=== PATIENT | female | born 1955 ===

== ENCOUNTER 2017-01-06 06:42 | Observation (INO) | payer OTHER ==
[2017-01-06] MEDS ORDERED: Morphine 2 mg/ml ISec IVP STA (07:13)
--- NOTE | 2017-01-06 07:20 | ED PDOC ---
Arrival/HPI - General Chief Complaint: Upper Extremity Problem/Injury Time Seen by Provider: 01/06/17 07:04 Historian: Patient - History of Present Illness Narrative History of Present Illness (Text): 01/06/17 07:16 Patient is a 61 year old female, on Metoprolol 25 mg, presents to the emergency department with right sided neck, shoulder, and chest pain for the past 2 days. Patient states she is unable to pinpoint where the pain is coming from. Patient reports she has had this pain on and off in the past. She states her chest pain is worse with inspiration. She also reports palpitations and nausea. Patient states she was unable to find a comfortable position while sleeping last night due to the pain. Denies leg pain, abdominal pain, or other complaints. PMD: Dr. Conchis Benito ([place]) Time/Duration: < week Symptom Onset: Gradual Symptom Course: Unchanged Modifying Factors (Text): None Past Medical History - Provider Review Nursing Documentation Reviewed: Yes - Cardiac Hx Hypertension: Yes - Endocrine/Metabolic Hx Hyperthyroidism: Yes - Psychiatric Hx Substance Use: No Family/Social History - Physician Review Nursing Documentation Reviewed: Yes Family/Social History: Unknown Family HX Smoking Status: n Hx Alcohol Use: No Hx Substance Use: No Allergies/Home Meds Allergies/Adverse Reactions: Allergies Penicillins Allergy (Verified 01/06/17 11:53) ANAPHYLAXIS Home Medications: Home Meds Medication Instructions Recorded Confirmed Amlodipine Besylate/Benazepril 1 cap PO HS 01/06/17 01/06/17 [Amlodipine-Benazepril 2.5-10] Aspirin [Adult Low Dose Aspirin EC] 81 mg PO DAILY 01/06/17 01/06/17 Atorvastatin Calcium 20 mg PO HS 01/06/17 01/06/17 Levothyroxine Sodium 100 mcg PO DAILY 01/06/17 01/06/17 Lisinopril/Hydrochlorothiazide 12.5 - 20 mg PO DAILY 01/06/17 01/06/17 [Lisinopril-Hctz 20-12.5 mg Tab] Metformin HCl [Glucophage] 500 mg PO BID 01/06/17 01/06/17 Metoprolol Tartrate [Lopressor] 25 mg PO DAILY 01/06/17 01/06/17 Review of Systems - Review of Systems Eyes: absent: Vision Changes ENT: absent: Hearing Changes Respiratory: absent: SOB, Cough Cardiovascular: Chest Pain Gastrointestinal: Nausea. absent: Abdominal Pain, Vomiting Genitourinary Female: absent: Dysuria, Hematuria Musculoskeletal: Other (Right shoulder pain, Right neck pain) Skin: absent: Rash Neurological: absent: Headache Endocrine: absent: Diaphoresis Physical Exam - Physical Exam Narrative Physical Exam (Text): Head: Atraumatic. Normocephalic. Eyes: PERRL. EOMI. Conjunctivae are not pale. ENT: Mucous membranes are moist and intact. Oropharynx is clear and symmetric. Neck: Supple. Full ROM. No JVD. No lymphadenopathy. Paraspinal tenderness, right greater than left. Cardiovascular: Tachycardic. Regular rhythm. No murmurs, rubs, or gallops. Distal pulses are 2+ and symmetric. Pulmonary/Chest: Palpable chest wall tenderness. No evidence of respiratory distress. Clear to auscultation bilaterally. No wheezing, rales or rhonchi. Abdominal: Soft and non-distended. There is no tenderness. No rebound, guarding, or rigidity. No organomegaly. Good bowel sounds. Back: No CVA tenderness. Extremities: Palpable right shoulder tenderness, worse with ROM. No edema. No cyanosis. No clubbing. No calf tenderness. Skin: Skin is warm and dry. No petechiae. No purpura. Neurological: Alert, awake, and oriented to person, place, time, and situation. Normal speech. Motor and sensory exam intact. Psychiatric: Good eye contact. Appears somewhat anxious. 01/06/17 16:16 Vital Signs Reviewed: Yes Vital Signs Temp Pulse Resp BP Pulse Ox 01/06/17 08:42 94 H 20 147/80 99 01/06/17 06:51 98.1 F 117 H 18 118/72 99 Temperature: Afebrile Blood Pressure: Normal Pulse: Tachycardic Respiratory Rate: Normal Appearance: Positive for: Well-Appearing, Non-Toxic, Uncomfortable Pain Distress: Moderate Mental Status: Positive for: Alert and Oriented X 3 Medical Decision Making ED Course and Treatment: Differential Diagnosis include but are not limited to: Muscle strain vs coronary artery disease vs PE Plan: Will give pain medication, Zofran, and obtain CCU workup. Progress Notes: Patient with severe right sided chest pain radiating to neck. Pulses equal and strong, although patient tachycardic and tachypneic. Ddimer unremarkable, but persistent pain radiating to back thus ct angio ordered. CT angio result reviewed no dissection. Recommend follow-up of ct findings during inpatient admission. Will admit to telemetry for cardiac monitoring as pain persistent, cardiac risk factors reported, no prior cardiac workup obtained. Case d/w hospitalist accepts admission to his service. 01/06/17 16:19 - Lab Interpretations Lab Results: 01/06/17 07:15 01/06/17 07:15 Lab Results 01/06/17 07:26: POC Glucose (mg/dL) 156 H 01/06/17 07:15: pO2 42, VBG pH 7.34, VBG pCO2 49.0, VBG HCO3 26.4, VBG Total CO2 27.9, VBG O2 Sat (Calc) 79.5 H, VBG Base Excess -0.1 L, VBG Potassium 4.2, Sodium 141.0, Chloride 106.0, Glucose 149 H, Lactate 4.9 H*, FiO2 21.0, Venous Blood Potassium 4.2 01/06/17 07:15: Urine Color Yellow, Urine Appearance Clear, Urine pH 7.0, Ur Specific [place] <= 1.005, Urine Protein Negative, Urine Glucose (UA) Negative, Urine Ketones Negative, Urine Blood Negative, Urine Nitrate Negative, Urine Bilirubin Negative, Urine Urobilinogen 0.2, Ur Leukocyte Esterase Negative 01/06/17 07:15: Sodium 142, Chloride 102, Potassium 4.2, Carbon Dioxide 24, Anion Gap 20, BUN 11, Creatinine 0.6, Est GFR ( Amer) > 60, Est GFR (Non- Af Amer) > 60, Random Glucose 151 H, Calcium 9.7, Total Bilirubin 0.5, AST 48 H , ALT 42, Alkaline Phosphatase 91, Lactate Dehydrogenase 519, Total Creatine Kinase 180, Troponin I < 0.01, NT-Pro-B Natriuret Pep 35.9, Total Protein 8.6 H , Albumin 4.6, Globulin 3.9, Albumin/Globulin Ratio 1.2 01/06/17 07:15: PT 10.1, INR 0.94, APTT 26.4, D-Dimer, Quantitative 0.26 01/06/17 07:15: WBC 5.9, RBC 5.03, Hgb 14.8, Hct 42.3, MCV 84.1, MCH 29.4, MCHC 35.0, RDW 13.2, Plt Count 306, MPV 9.7, Gran % 49.1 L, Lymph % (Auto) 38.4 H, [place] % (Auto) 10.1 H, Eos % (Auto) 1.7, Baso % (Auto) 0.7, Gran # 2.92, Lymph # 2.3, [place] # 0.6, Eos # 0.1, Baso # 0.04 - RAD Interpretation Radiology Orders: 01/06/17 07:13 CHEST PORTABLE [RAD] Stat 01/06/17 08:42 ANGIOGRAPHY DISECTION PROTOCOL [CT] Stat Business Relations Manager: Radiologist - EKG Interpretation EKG Interpretation (Text): 01/06/17 16:18 EKG at 19:00 sinus tachycardia rate of [address] elevations Interpreted by ED Physician: Yes Type: 12 lead EKG - Medication Orders Current Medication Orders: Amlodipine Besylate (Norvasc) 10 mg PO DAILY [facility] Last Admin: 01/06/17 11:33 Dose: 10 mg Aspirin (Ecotrin) 81 mg PO DAILY JOS Atorvastatin Calcium (Lipitor) 20 mg PO HS JOS Enoxaparin Sodium (Lovenox) 40 mg SC DAILY [facility] PRN Reason: Protocol Last Admin: 01/06/17 10:21 Dose: 40 mg Levofloxacin/Dextrose (Levaquin 750mg) 750 mg in 150 mls @ 100 mls/hr IVPB DAILY [facility] Last Admin: 01/06/17 10:21 Dose: 100 mls/hr Sodium Chloride (Sodium Chloride 0.9%) 1,000 mls @ 100 mls/hr IV .Q10H [facility] Last Admin: 01/06/17 10:14 Dose: 100 mls/hr Insulin Human Regular (Humulin R Low) 0 units SC ACHS [facility] PRN Reason: Protocol Ketorolac Tromethamine (Toradol) 30 mg IVP Q6 PRN PRN Reason: Pain, moderate (4-7) Levothyroxine Sodium (Synthroid) 100 mcg PO DAILY JOS Lisinopril (Zestril) 20 mg PO DAILY [facility] Last Admin: 01/06/17 11:36 Dose: 20 mg Morphine Sulfate (Morphine) 2 mg IVP Q6H PRN PRN Reason: Pain, severe (8-10) Last Admin: 01/06/17 11:33 Dose: 2 mg Re-Assess: CAROL ANN Pain Assessment Document 01/06/17 12:33 AND (Rec: 01/06/17 13:23 AND [email or web address]) Pain Reassessment Is this a pain reassessment? Yes Sleep Is patient sleeping during reassessment? No Presence of Pain Presence of Pain No Ondansetron HCl (Zofran Inj) 4 mg IVP Q6 PRN PRN Reason: Nausea/Vomiting Last Admin: 01/06/17 14:17 Dose: 4 mg Pantoprazole Sodium (Protonix Ec Tab) 40 mg PO DAILY [facility] Last Admin: 01/06/17 10:21 Dose: 40 mg Discontinued Medications Aspirin (Aspirin Chewable) 81 mg PO STAT STA Stop: 01/06/17 08:44 Last Admin: 01/06/17 08:56 Dose: 81 mg Aspirin (Aspirin Chewable) 81 mg PO DAILY [facility] Last Admin: 01/06/17 10:07 Dose: Sodium Chloride (Sodium Chloride 0.9%) 500 mls @ 1,000 mls/hr IV .Q30M STA Stop: 01/06/17 08:59 Last Admin: 01/06/17 08:57 Dose: 1,000 mls/hr Iodixanol (Visipaque) Confirm Administered Dose 150 ml IV .STK-MED ONE Stop: 01/06/17 08:48 Ketorolac Tromethamine (Toradol) 30 mg IVP ONCE ONE Stop: 01/06/17 08:43 Last Admin: 01/06/17 08:56 Dose: 30 mg Levothyroxine Sodium (Synthroid) 100 mcg PO ACB [facility] Last Admin: 01/06/17 11:33 Dose: 100 mcg Morphine Sulfate (Morphine) 2 mg IVP STAT STA Stop: 01/06/17 07:14 Last Admin: 01/06/17 07:34 Dose: 2 mg Ondansetron HCl (Zofran Inj) 4 mg IVP ONCE ONE Stop: 01/06/17 07:14 Last Admin: 01/06/17 07:33 Dose: 4 mg Pneumococcal Polyvalent Vaccine (Pneumovax 23 Vaccine) 0.5 ml IM .ONCE ONE Stop: 01/06/17 14:11 - Scribe Statement The provider has reviewed the documentation as recorded by the Ayanna Freitas Provider Scribe Attestation: All medical record entries made by the Scribe were at my direction and personally dictated by me. I have reviewed the chart and agree that the record accurately reflects my personal performance of the history, physical exam, medical decision making, and the department course for this patient. I have also personally directed, reviewed, and agree with the discharge instructions and disposition. Disposition/Present on Arrival - Present on Arrival Any Indicators Present on Arrival: No History of DVT/PE: No History of Uncontrolled Diabetes: No Urinary Catheter: No History of Decub. Ulcer: No History Surgical Site Infection Following: None - Disposition Have Diagnosis and Disposition been Completed?: Yes Diagnosis: Chest pain, Tachycardia, Neck pain Disposition: HOSPITALIZED Disposition Time: 09:00 Patient Plan: Admission, Observation, Telemetry Patient Problems: Current Active Problems Problem Status Onset Chest pain Acute Tachycardia Acute Condition: FAIR
[2017-01-06 07:40] LABS: ADD MANUAL DIFF? NO
[2017-01-06 07:45] LABS: BASO # 0.04 K/mm3 (0.0-2.0); BASO % 0.7 % (0.0-3.0); EOS # 0.1 (0.0-0.7); EOS % 1.7 % (1.5-5.0); GRAN # 2.92 (1.4-6.5); GRAN % 49.1 % (50.0-68.0); HEMATOCRIT 42.3 % (36.0-48.0); LYMPH # 2.3 (1.2-3.4); LYMPH % 38.4 % (22.0-35.0); MEAN CELL VOLUME 84.1 fL (80.0-105.0); MEAN CORPUSCULAR HEMOGLOBIN 29.4 pg (25.0-35.0); MEAN PLATELET VOLUME 9.7 fl (7.0-11.0); MONO # 0.6 (0.1-0.6); MONO % 10.1 % (1.0-6.0); PLATELET COUNT 306 10^3/uL (120.0-450.0); RED CELL DISTRIBUTION WIDTH 13.2 % (11.5-14.5); WHITE BLOOD COUNT 5.9 10^3/ul (4.5-11.0)
[2017-01-06 07:55] LABS: URINE BILIRUBIN NEGATIVE (NEGATIVE); URINE BLOOD NEGATIVE (NEGATIVE); URINE GLUCOSE (UA) NEGATIVE (NEGATIVE); URINE KETONE NEGATIVE (NEGATIVE); URINE LEUKOCYTE ESTERASE NEGATIVE Leu/uL (NEGATIVE); URINE PROTEIN NEGATIVE mg/dL (<30 mg/dL); URINE UROBILINOGEN 0.2 E.U./dL (<1 E.U./dL)
[2017-01-06 08:00] LABS: INR 0.94 (0.93-1.08); PARTIAL THROMBOPLASTIN TIME 26.4 Seconds (23.7-30.8)
[2017-01-06 08:05] LABS: URINE APPEARANCE CLEAR (CLEAR); URINE COLOR YELLOW (YELLOW)
[2017-01-06 08:07] LABS: ALB/GLOB RATIO 1.2 (1.1-1.8); ALKALINE PHOSPHATASE 91 U/L (38-133); ALT/SGPT 42 U/L (7-56); AST/SGOT 48 U/L (15-39); BILIRUBIN,TOTAL 0.5 mg/dL (0.2-1.3); BLOOD UREA NITROGEN 11 mg/dL (7-21); CALCIUM 9.7 mg/dL (8.4-10.5); CARBON DIOXIDE 24 mmol/L (21-33); CHLORIDE 102 mmol/L (98-107); GFR AFRICAN-AMERICAN > 60; GLUCOSE,RANDOM 151 mg/dL (70-110); POTASSIUM 4.2 mmol/L (3.6-5.0); SODIUM 142 mmol/L (132-148); TOTAL PROTEIN 8.6 g/dL (5.8-8.3)
[2017-01-06 08:15] LABS: VENOUS BLOOD GAS BASE EXCESS -0.1 mmol/L (0.0-2.0); VENOUS BLOOD PH 7.34 (7.32-7.43)
[2017-01-06 08:19] LABS: TROPONIN I < 0.01 ng/mL
[2017-01-06] MEDS ORDERED: Sodium Chloride 0.9% 500 ML IV STA (08:30)
[2017-01-06 08:31] LABS: D DIMER 0.26 mg/L FEU (0-0.50)
[2017-01-06] MEDS ORDERED: Iodixanol 320 mg/ml 150 ml Bottle IV ONE (08:47)
--- NOTE | 2017-01-06 08:48 | RAD ---
HISTORY: right sided chest pain COMPARISON: No prior. FINDINGS: LUNGS: There is bibasilar atelectasis. There is no lobar pneumonia. PLEURA: No significant pleural effusion identified, no pneumothorax apparent. CARDIOVASCULAR: Normal. OSSEOUS STRUCTURES: No significant abnormalities. VISUALIZED UPPER ABDOMEN: Normal. OTHER FINDINGS: None. IMPRESSION: No acute findings.
--- NOTE | 2017-01-06 09:44 | CP.PCM.HP ---
<Edinson Espinosa - Last Filed: 01/06/17 14:16> History of Present Illness - History of Present Illness History of Present Illness: H&P: Dr. Crowley CC - R neck/Chest pain 61yo F with PMHx of HTN, Hypothyroid, HLD, DM here for evaluation of right sided chest and neck pain. Pain started 3 days ago when she was resting at home. Pain started in the right jaw, then down to the right neck and right side of the chest. Pain comes and goes, gets worse with movement, has been getting more severe in intensity. Described as sharp pressure. Neck pain worse when turning head to the right. Chest pain worse when lifting right arm up. Deep breath makes pain slightly worse. Denies any SOB. No N/V/D. No Diaphoresis. no headache. No fever, chills. No recent sick contacts. Has been taking home medications as directed. PMD: Conchis Benito PMHx: HTN, HLD, Hypothyroid, DM PSHx: Tubal ligation Family Hx: Mother - HTN; Maternal grandmother - HTN Social Hx: Lives alone; Denies Tob, Denies ETOH, Denies illicit drugs Allergy: PCN Meds - ASA 81, Atorvastatin 20, Metoprolol 25 daily, Levothyroxine 100mcg Daily , Lisinopril/HCTZ 20/12.5mg, Metformin 500mg BID, Amlodipine 10mg Daily Present on Admission - Present on Admission Any Indicators Present on Admission: No Review of Systems - Review of Systems All systems: reviewed and no additional remarkable complaints except - Constitutional Constitutional: absent: Chills, Fever - EENT Eyes: absent: Blurred Vision Ears: absent: Decreased Hearing Nose/Mouth/Throat: absent: Epistaxis, Nasal Congestion - Cardiovascular Cardiovascular: Chest Pain. absent: Dyspnea, Palpitations - Respiratory Respiratory: absent: Cough - Gastrointestinal Gastrointestinal: absent: Abdominal Pain, Nausea, Vomiting - Musculoskeletal Musculoskeletal: Neck Pain - Integumentary Integumentary: absent: Dry Skin, Wounds - Psychiatric Psychiatric: absent: Anxiety, Depression Past Patient History - Past Social History Smoking Status: n - CARDIAC Hx Hypertension: Yes - ENDOCRINE/METABOLIC Hx Hyperthyroidism: Yes - PSYCHIATRIC Hx Substance Use: No Meds Allergies/Adverse Reactions: Allergies Allergy/AdvReac Type Severity Reaction Status Date / Time Penicillins Allergy ANAPHYLAXIS Verified 01/06/17 11:53 Physical Exam - Constitutional Appears: Well, No Acute Distress - Head Exam Head Exam: ATRAUMATIC, NORMAL INSPECTION, NORMOCEPHALIC - Eye Exam Eye Exam: EOMI, Normal appearance, PERRL. absent: Scleral icterus Pupil Exam: PERRL - ENT Exam ENT Exam: Mucous Membranes Moist - Neck Exam Additional comments: decreased range of motion, no nucal rigidity, no bony tenderness. Pain illicited when passively turning head to right. No meningeal signs - Respiratory Exam Respiratory Exam: Chest Wall Tenderness, Clear to Auscultation Bilateral, NORMAL BREATHING PATTERN. absent: Accessory Muscle Use, Decreased Breath Sounds , Rales, Rhonchi, Wheezes, Respiratory Distress - Cardiovascular Exam Cardiovascular Exam: Tachycardia, +S1, +S2. absent: JVD - GI/Abdominal Exam GI & Abdominal Exam: Soft. absent: Distended, Firm, Guarding, Rebound, Tenderness - Extremities Exam Extremities exam: Positive for: normal inspection. Negative for: calf tenderness - Back Exam Back exam: NORMAL INSPECTION - Neurological Exam Neurological exam: Alert, Oriented x3 - Psychiatric Exam Psychiatric exam: Normal Affect, Normal Mood - Skin Skin Exam: Dry, Intact, Normal Color, Warm Results - Vital Signs Recent Vital Signs: Last Vital Signs Temp 98.1 F 01/06/17 06:51 Pulse 94 H 01/06/17 08:42 Resp 20 01/06/17 08:42 BP 147/80 01/06/17 08:42 Pulse Ox 99 01/06/17 08:42 - Labs Result Diagrams: 01/06/17 07:15 01/06/17 07:15 Assessment & Plan - Assessment and Plan (Free Text) Assessment: 61yo F with PMHx of HTN, Hypothyroidism, DM, HLD here for evaluation of right sided chest and neck pain 1. Atypical chest pain Reproducible EKG - sinus tachy @113, no acute ST changes CXR - mild atelectasis, no infiltrates D-Dimer negative troponin neg x1, will trend Pain management: motrin, toradol, morphine continue home meds: Asa 81 f/u Cervical Spine xray f/u CT angiography 2. Lactic Acidosis no current clinical signs or symptoms will repeat lactic acid f/u blood cxs UA negative f/u Urine Cxs f/u Procalcitonin Levofloxacin for now, can be discharged if above is negative NS @100 3. Hx of DM f/u HbA1c ISS Accuchecks hold metformin for now 4. Hx of HTN continue home meds: Amlodipine, Lisinopril hold HCTZ hold Metoprolol continue to monitor 5. Hx of HLD continue atorvastatin 20 HS 6. Hx of Hypothyroid f/u TSH continue Levothyroxine 100mcg 7. PPx Lovenox Protonix Discussed case with Dr. Carline Espinosa PGY1 <Aston Crowley MD - Last Filed: 01/06/17 17:22> Results - Vital Signs Recent Vital Signs: Last Vital Signs Temp 98.1 F 01/06/17 13:38 Pulse 84 01/06/17 14:00 Resp 20 01/06/17 13:38 BP 131/71 01/06/17 13:38 Pulse Ox 99 01/06/17 08:42 - Labs Result Diagrams: 01/06/17 07:15 01/06/17 07:15 Labs: Laboratory Results - last 24 hr 01/06/17 01/06/17 01/06/17 11:30 11:30 11:30 pO2 VBG pH VBG pCO2 VBG HCO3 VBG Total CO2 VBG O2 Sat (Calc) VBG Base Excess VBG Potassium Sodium Chloride Glucose Lactate FiO2 Hemoglobin A1c 6.4 Troponin I Procalcitonin 0.05 L TSH 3rd Generation 6.61 H Venous Blood Potassium 01/06/17 01/06/17 11:30 13:52 pO2 33 VBG pH 7.49 H VBG pCO2 31.0 L VBG HCO3 23.6 VBG Total CO2 24.6 VBG O2 Sat (Calc) 73.2 H VBG Base Excess 1.1 VBG Potassium 3.9 Sodium 139.0 Chloride 110.0 H Glucose 103 Lactate 1.7 FiO2 21.0 Hemoglobin A1c Troponin I < 0.01 Procalcitonin TSH 3rd Generation Venous Blood Potassium 3.9 Attending/Attestation - Attestation I have personally seen and examined this patient.: Yes I have fully participated in the care of the patient.: Yes I have reviewed all pertinent clinical information: Yes Notes (Text): 01/06/17 17:12 Patient was seen and examined with director medical economics .Agreed with resident assessment and plan. 61 Yrs old female with PMH of Obesity,HTN,DM,Hyperlipidemia is admitted with chest and neck pain, has significant chest wall tenderness, also has muscle spasm of neck,There is no neck stiffness. X ray of neck is negative for acute fracture and dislocation. We will start patient on NSAID, musscle relaxant. Lactic acid at the time of arrival in ER was elevated , etiology is unclear, has come back to normal .There is no sign of infection, we will follow up cultures, Management plan was discussed in detail with patient Education was provided.
[2017-01-06] MEDS ORDERED: Levothyroxine 100 MCG TAB PO SCH (09:45)
[2017-01-06] MEDS: Sodium Chloride 0.9% 1,000 ML IV SCH ×2 (10:14→22:16)
[2017-01-06] MEDS: Enoxaparin 40 mg Syringe SC SCH (10:21)
[2017-01-06] MEDS: Pantoprazole 40 mg EC Tab PO SCH (10:21)
[2017-01-06] MEDS: levoFLOXacin 750 mg in D5W 750 MG/150 ML BAG IVPB SCH (10:21)
--- NOTE | 2017-01-06 11:32 | CT ---
PROCEDURE: CT Angiography Chest, Abdomen and Pelvis with and without intravenous contrast HISTORY: chest pain radiating to back COMPARISON: None. TECHNIQUE: Contiguous axial images of the chest, abdomen and pelvis were obtained in the phase of aortic enhancement. A noncontrast enhanced CT of the chest was also obtained to evaluate for possible intramural thrombus. Coronal and sagittal reformats were generated. IV dose administered: Radiation dose: Total exam DLP = mGy-cm. This CT exam was performed using one or more of the following dose reduction techniques: Automated exposure control, adjustment of the mA and/or kV according to patient size, and/or use of iterative reconstruction technique. FINDINGS: CT ANGIOGRAPHY OF THE CHEST WITH & WITHOUT CONTRAST: AORTA (CHEST AND ABDOMEN): The thoracic and abdominal aorta are unremarkable, without aneurysm, dissection or rupture. No intramural thrombus identified in the thoracic aorta on the non-contrast ct of the chest. The celiac axis, superior mesenteric artery, inferior mesenteric artery and the renal arteries are widely patent. The pelvic arteries are unremarkable. LUNGS: Calcified granuloma measuring roughly 8 millimeters in the left upper lobe. Otherwise the lungs are clear. MEDIASTINUM: Unremarkable. Normal caliber aorta and pulmonary arterial trunk. No aortic dissection. Normal size heart. LYMPH NODES: Unremarkable. PLEURA: Unremarkable. No pneumothorax. No pleural fluid. BONES: Unremarkable. OTHER FINDINGS: None. CT ANGIOGRAPHY OF THE ABDOMEN AND PELVIS WITH CONTRAST: LIVER: Fatty infiltration of the liver.. No gross lesion or ductal dilatation. GALLBLADDER AND BILE DUCTS: Unremarkable. PANCREAS: Unremarkable. No gross lesion or ductal dilatation. SPLEEN: Unremarkable. ADRENALS: Unremarkable. No mass. KIDNEYS AND URETERS: Unremarkable. No hydronephrosis. No solid mass. VASCULATURE: Unremarkable. No aortic aneurysm. STOMACH AND BOWEL: Unremarkable. No obstruction. No gross mural thickening. APPENDIX: Normal appendix. PERITONEUM: Unremarkable. No free fluid. No free air. LYMPH NODES: Unremarkable. No enlarged lymph nodes. BLADDER: Unremarkable. REPRODUCTIVE: Unremarkable. BONES: No acute fracture. OTHER FINDINGS: None. IMPRESSION: Fatty liver. Calcified granuloma in the left upper lobe. No evidence of aortic aneurysm or dissection.
[2017-01-06] MEDS: Morphine 2 mg/ml ISec IVP PRN ×2 (11:33→17:23)
[2017-01-06 11:40] LABS: VENOUS BLOOD GAS BASE EXCESS 1.1 mmol/L (0.0-2.0); VENOUS BLOOD PH 7.49 (7.32-7.43)
[2017-01-06 14:10] VITALS: BMI 30.7
[2017-01-06] MEDS ORDERED: Pneumococcal 23-Valent Vaccine IM ONE (14:10)
--- NOTE | 2017-01-06 14:37 | RAD ---
PROCEDURE: Cervical Spine Radiographs. HISTORY: Pain. COMPARISON: None. FINDINGS: BONES: There is straightening of the cervical spine with loss of normal cervical lordosis. Vertebral alignment is normal. Vertebral height is maintained. There is no acute fracture or bone destruction. The craniocervical junction is normal. The atlantoaxial joint is normal. DISC SPACES: There is mild degenerative disc disease and C5-6 and C6-7 with reduced disc heights, anterior spurring and facet arthropathy. The neural foramina are patent. SOFT TISSUES: Normal. No prevertebral soft tissue swelling. OTHER FINDINGS: None. IMPRESSION: Mild degenerative disc disease at C5-6 and C6-7. Straightening of the cervical spine may be positional or related to muscle spasm.
--- NOTE | 2017-01-06 16:19 | CARD ---
APPROVED REPORT EKG Measurement Heart [id number] <Conclusion> Sinus tachycardia Otherwise normal ECG
[2017-01-06] MEDS: Insulin Reg-LOW-Coverage SC SCH ×2 (17:21→22:15)
[2017-01-07 06:48] LABS: ADD MANUAL DIFF? NO
[2017-01-07 07:12] LABS: BLOOD UREA NITROGEN 9 mg/dL (7-21); CALCIUM 8.9 mg/dL (8.4-10.5); CARBON DIOXIDE 22 mmol/L (21-33); CHLORIDE 109 mmol/L (98-107); GFR AFRICAN-AMERICAN > 60; GLUCOSE,RANDOM 117 mg/dL (70-110); POTASSIUM 3.7 mmol/L (3.6-5.0); SODIUM 141 mmol/L (132-148)
[2017-01-07 07:25] LABS: BASO # 0.04 K/mm3 (0.0-2.0); BASO % 0.8 % (0.0-3.0); EOS # 0.1 (0.0-0.7); EOS % 1.4 % (1.5-5.0); GRAN # 2.62 (1.4-6.5); GRAN % 51.5 % (50.0-68.0); HEMATOCRIT 39.2 % (36.0-48.0); LYMPH # 1.9 (1.2-3.4); LYMPH % 36.9 % (22.0-35.0); MEAN CELL VOLUME 84.7 fL (80.0-105.0); MEAN CORPUSCULAR HEMOGLOBIN 29.6 pg (25.0-35.0); MEAN CORPUSCULAR HGB CONC 34.9 g/dl (31.0-37.0); MEAN PLATELET VOLUME 9.6 fl (7.0-11.0); MONO # 0.5 (0.1-0.6); MONO % 9.4 % (1.0-6.0); PLATELET COUNT 280 10^3/uL (120.0-450.0); RED CELL DISTRIBUTION WIDTH 13.5 % (11.5-14.5); WHITE BLOOD COUNT 5.1 10^3/ul (4.5-11.0)
[2017-01-07] MEDS: Insulin Reg-LOW-Coverage SC SCH ×3 (07:55→16:52)
[2017-01-07] MEDS ORDERED: Levothyroxine 100 MCG TAB PO SCH (10:00)
[2017-01-07] MEDS: Pantoprazole 40 mg EC Tab PO SCH (10:17)
[2017-01-07] MEDS: Enoxaparin 40 mg Syringe SC SCH (10:18)
[2017-01-07] MEDS: levoFLOXacin 750 mg in D5W 750 MG/150 ML BAG IVPB SCH (10:20)
--- NOTE | 2017-01-07 11:39 | CT ---
PROCEDURE: CT Cervical Spine without contrast HISTORY: Dizziness COMPARISON: None available. TECHNIQUE: Axial computed tomography images were obtained of the cervical spine without the use of intravenous contrast. Coronal and sagittal reformatted images were created and reviewed. Radiation dose: Total exam DLP = 438.25 mGy-cm. This CT exam was performed using one or more of the following dose reduction techniques: Automated exposure control, adjustment of the mA and/or kV according to patient size, and/or use of iterative reconstruction technique. FINDINGS: VERTEBRAE: There is straightening of the cervical spine with loss of normal cervical lordosis. Vertebral alignment is normal. Vertebral height is maintained. There is no acute fracture or spondylolisthesis. The craniocervical junction is normal. The atlantoaxial joint is normal. Bone mineralization is normal. DISCS/SPINAL CANAL/NEURAL FORAMINA: There is mild multilevel degenerative disc disease at C5-6 with a broad-based disc osteophyte complex, uncovertebral joint hypertrophy and mild facet arthropathy and resultant mild left neural foraminal stenosis. No spinal canal stenosis. Discs heights are grossly preserved. PARASPINAL SOFT TISSUES: Unremarkable. OTHER FINDINGS: None. IMPRESSION: Mild degenerative disc disease at C5-6 with mild left neural foraminal stenosis. No spinal canal stenosis. Straightening of the cervical spine may be positional or related to muscle spasm.
--- NOTE | 2017-01-07 13:47 | CP.PCM.PN ---
<Edinson Espinosa - Last Filed: 01/07/17 13:37> Subjective - Date & Time of Evaluation Date of Evaluation: 01/07/17 Time of Evaluation: 08:00 - Subjective Subjective: Medicine Progress note. Dr. Crowley Pt seen and examined at bedside. No acute events overnight. Patient states that she has been feeling dizzy. No N/V/D. No Abd pain. Still with Right neck pain, right arm pain, right side reproducible chest pain. Mild improvement since yesterday. She was trying to work with physical therapy this morning, however, she became very dizzy and unsteady on her feet. Orthostatic vital signs were wnl at the time. Objective - Vital Signs/Intake and Output Vital Signs (last 24 hours): Temp Pulse Resp BP Pulse Ox 98.2 F 86 20 135/71 95 01/07/17 12:00 01/07/17 12:00 01/07/17 12:00 01/07/17 12:00 01/07/17 06:00 Intake and Output: 01/07/17 01/07/17 06:59 18:59 Intake Total 120 1200 Output Total 0 Balance 120 1200 - Medications Medications: Current Medications Amlodipine Besylate (Norvasc) 10 mg PO DAILY [facility] Last Admin: 01/07/17 10:18 Dose: 10 mg Aspirin (Ecotrin) 81 mg PO DAILY [facility] Last Admin: 01/07/17 10:17 Dose: 81 mg Atorvastatin Calcium (Lipitor) 20 mg PO HS [facility] Last Admin: 01/06/17 22:16 Dose: 20 mg Baclofen (Lioresal) 5 mg PO TID [facility] Last Admin: 01/07/17 10:17 Dose: 5 mg Enoxaparin Sodium (Lovenox) 40 mg SC DAILY [facility] PRN Reason: Protocol Last Admin: 01/07/17 10:18 Dose: 40 mg Insulin Human Regular (Humulin R Low) 0 units SC ACHS [facility] PRN Reason: Protocol Last Admin: 01/07/17 11:49 Dose: 1 units Ketorolac Tromethamine (Toradol) 30 mg IVP Q6 PRN PRN Reason: Pain, moderate (4-7) Levothyroxine Sodium (Synthroid) 112 mcg PO ACB [facility] Lisinopril (Zestril) 20 mg PO DAILY [facility] Last Admin: 01/07/17 10:18 Dose: 20 mg Metoprolol Tartrate (Lopressor) 25 mg PO DAILY [facility] Last Admin: 01/07/17 10:19 Dose: 25 mg Morphine Sulfate (Morphine) 2 mg IVP Q6H PRN PRN Reason: Pain, severe (8-10) Last Admin: 01/06/17 17:23 Dose: 2 mg Ondansetron HCl (Zofran Inj) 4 mg IVP Q6 PRN PRN Reason: Nausea/Vomiting Last Admin: 01/06/17 14:17 Dose: 4 mg Oxycodone/Acetaminophen (Percocet 5/325 Mg Tab) 1 tab PO Q6H PRN PRN Reason: Pain, severe (8-10) Stop: 01/10/17 10:32 Pantoprazole Sodium (Protonix Ec Tab) 40 mg PO DAILY [facility] Last Admin: 01/07/17 10:17 Dose: 40 mg - Labs Labs: 01/07/17 06:30 01/07/17 06:30 PT 10.1 Seconds (9.9-11.8) 01/06/17 07:15 INR 0.94 (0.93-1.08) 01/06/17 07:15 APTT 26.4 Seconds (23.7-30.8) 01/06/17 07:15 - Constitutional Appears: Well, No Acute Distress - Head Exam Head Exam: ATRAUMATIC, NORMAL INSPECTION, NORMOCEPHALIC - Eye Exam Eye Exam: EOMI, Normal appearance, PERRL. absent: Scleral icterus Pupil Exam: PERRL - ENT Exam ENT Exam: Mucous Membranes Moist - Neck Exam Additional comments: Decreased Passive ROM of the neck to the right. Tender to palpation, worse with passive flexion of the right shoulder. - Respiratory Exam Respiratory Exam: Clear to Ausculation Bilateral, NORMAL BREATHING PATTERN. absent: Rales, Wheezes, Stridor - Cardiovascular Exam Cardiovascular Exam: RRR, +S1, +S2. absent: JVD - GI/Abdominal Exam GI & Abdominal Exam: Soft. absent: Distended, Guarding, Tenderness, Rebound - Extremities Exam Additional comments: decreased ROM right upper extremity at the shoulder due to pain. - Neurological Exam Neurological Exam: Alert, Awake, Oriented x3 - Psychiatric Exam Psychiatric exam: Normal Affect, Normal Mood - Skin Skin Exam: Dry, Intact, Normal Color, Warm Assessment and Plan - Assessment and Plan (Free Text) Assessment: 61yo F with PMHx of HTN, Hypothyroidism, DM, HLD here for evaluation of right sided chest and neck pain 1. Atypical chest pain Reproducible EKG - sinus tachy @113, no acute ST changes CXR - mild atelectasis, no infiltrates D-Dimer negative troponin neg x3, ACS ruled out Pain management: toradol, morphine continue home meds: Asa 81 CT angiography - No PE, No dissection 2. Muscle spasm Cervical Spine xray - Decreased c-spine lordosis, possible muscle spasm f/u CT c-spine Started on Baclofen TID 3. Dizziness consider due to narcotics will use NSAIDs preferred over narcotics continue PT eval and treat 4. Lactic Acidosis resolved no current clinical signs or symptoms repeat lactic acid wnl f/u blood cxs UA negative f/u Urine Cxs Procalcitonin negative Levofloxicin discontinued 5. Hx of DM HbA1c - 6.4 ISS Accuchecks hold metformin for now, may restart on 01/08 Patient received contrast dye yesterday 6. Hx of HTN continue home meds: Amlodipine, Lisinopril hold HCTZ resume Metoprolol continue to monitor 7. Hx of HLD continue atorvastatin 20 HS 8. Hx of Hypothyroid TSH - 6.61 mildly elevated increase Levothyroxine 112mcg will need out-patient f/u 9. PPx Lovenox Protonix Discussed case with Dr. Carline Espinosa PGY1 <Carline ANDERSEN,[place] - Last Filed: 01/07/17 15:17> Objective - Vital Signs/Intake and Output Vital Signs (last 24 hours): Temp Pulse Resp BP Pulse Ox 98.2 F 86 20 135/71 95 01/07/17 12:00 01/07/17 12:00 01/07/17 12:00 01/07/17 12:00 01/07/17 06:00 Intake and Output: 01/07/17 01/07/17 06:59 18:59 Intake Total 120 1800 Output Total 0 200 Balance 120 1600 - Medications Medications: Current Medications Amlodipine Besylate (Norvasc) 10 mg PO DAILY [facility] Last Admin: 01/07/17 10:18 Dose: 10 mg Aspirin (Ecotrin) 81 mg PO DAILY [facility] Last Admin: 01/07/17 10:17 Dose: 81 mg Atorvastatin Calcium (Lipitor) 20 mg PO HS [facility] Last Admin: 01/06/17 22:16 Dose: 20 mg Baclofen (Lioresal) 5 mg PO TID [facility] Last Admin: 01/07/17 10:17 Dose: 5 mg Enoxaparin Sodium (Lovenox) 40 mg SC DAILY [facility] PRN Reason: Protocol Last Admin: 01/07/17 10:18 Dose: 40 mg Insulin Human Regular (Humulin R Low) 0 units SC ACHS [facility] PRN Reason: Protocol Last Admin: 01/07/17 11:49 Dose: 1 units Ketorolac Tromethamine (Toradol) 30 mg IVP Q6 PRN PRN Reason: Pain, moderate (4-7) Last Admin: 01/07/17 14:05 Dose: 30 mg Levothyroxine Sodium (Synthroid) 112 mcg PO ACB [facility] Lisinopril (Zestril) 20 mg PO DAILY [facility] Last Admin: 01/07/17 10:18 Dose: 20 mg Metoprolol Tartrate (Lopressor) 25 mg PO DAILY [facility] Last Admin: 01/07/17 10:19 Dose: 25 mg Morphine Sulfate (Morphine) 2 mg IVP Q6H PRN PRN Reason: Pain, severe (8-10) Last Admin: 01/06/17 17:23 Dose: 2 mg Ondansetron HCl (Zofran Inj) 4 mg IVP Q6 PRN PRN Reason: Nausea/Vomiting Last Admin: 01/06/17 14:17 Dose: 4 mg Oxycodone/Acetaminophen (Percocet 5/325 Mg Tab) 1 tab PO Q6H PRN PRN Reason: Pain, severe (8-10) Stop: 01/10/17 10:32 Pantoprazole Sodium (Protonix Ec Tab) 40 mg PO DAILY [facility] Last Admin: 01/07/17 10:17 Dose: 40 mg - Labs Labs: 01/07/17 06:30 01/07/17 06:30 PT 10.1 Seconds (9.9-11.8) 01/06/17 07:15 INR 0.94 (0.93-1.08) 01/06/17 07:15 APTT 26.4 Seconds (23.7-30.8) 01/06/17 07:15 Attending/Attestation - Attestation I have personally seen and examined this patient.: Yes I have fully participated in the care of the patient.: Yes I have reviewed all pertinent clinical information, including history, physical exam and plan: Yes Notes (Text): 01/07/17 15:07 Patient was seen and examined with medical affairs manager .Agreed with resident assessment and plan. 61 Yrs old female with PMH of Obesity,HTN,DM,Hyperlipidemia is admitted with chest and neck and back pain, has significant chest wall tenderness, also has muscle spasm of neck,CT C spine mild degenerative disease, no spinal cord stenosis, has straighten of spine due to severe muscle spasm, no focal deficit, Patient is on NSAID and IV Morphine as well as on muscle relaxant, she is slowly improving, Patient was evaluated by PT today, not ambulatory due to severe pain.We will continue current treatment. Patient lactic acid in the initial VBG was high for unknown reason, no evidence of infection, repeat Lactic acid is normal.Cultures are negative.Procalcitonin level is normal, we will stop Levofloxacin. Management plan was discussed in detail with patient Education was provided.
[2017-01-07] MEDS: Oxycodone/Acetaminophen 5/325 mg Tab PO PRN ×2 (18:17→23:28)
[2017-01-08] MEDS: Oxycodone/Acetaminophen 5/325 mg Tab PO PRN ×2 (05:16→16:26)
[2017-01-08 07:36] LABS: ADD MANUAL DIFF? NO
[2017-01-08 07:56] LABS: BLOOD UREA NITROGEN 15 mg/dL (7-21); CARBON DIOXIDE 24 mmol/L (21-33); CHLORIDE 107 mmol/L (98-107); GFR AFRICAN-AMERICAN > 60; GLUCOSE,RANDOM 114 mg/dL (70-110); POTASSIUM 3.7 mmol/L (3.6-5.0); SODIUM 139 mmol/L (132-148)
[2017-01-08] MEDS: Insulin Reg-LOW-Coverage SC SCH ×5 (08:00→21:48)
[2017-01-08] MEDS: Levothyroxine 112 MCG TAB PO SCH (08:25)
[2017-01-08 08:45] LABS: BASO # 0.05 K/mm3 (0.0-2.0); BASO % 0.9 % (0.0-3.0); EOS # 0.2 (0.0-0.7); EOS % 2.9 % (1.5-5.0); GRAN # 2.68 (1.4-6.5); GRAN % 49.3 % (50.0-68.0); LYMPH # 1.9 (1.2-3.4); LYMPH % 35.3 % (22.0-35.0); MEAN CELL VOLUME 84.1 fL (80.0-105.0); MEAN CORPUSCULAR HEMOGLOBIN 29.2 pg (25.0-35.0); MEAN CORPUSCULAR HGB CONC 34.7 g/dl (31.0-37.0); MEAN PLATELET VOLUME 9.9 fl (7.0-11.0); MONO # 0.6 (0.1-0.6); MONO % 11.6 % (1.0-6.0); PLATELET COUNT 278 10^3/uL (120.0-450.0); RED CELL DISTRIBUTION WIDTH 13.6 % (11.5-14.5); WHITE BLOOD COUNT 5.4 10^3/ul (4.5-11.0)
[2017-01-08] MEDS: Enoxaparin 40 mg Syringe SC SCH (09:39)
[2017-01-08] MEDS: Pantoprazole 40 mg EC Tab PO SCH (09:40)
--- NOTE | 2017-01-08 11:36 | CP.PCM.PN ---
<TamirLina - Last Filed: 01/08/17 16:34> Subjective - Date & Time of Evaluation Date of Evaluation: 01/08/17 Time of Evaluation: 11:10 - Subjective Subjective: Pt seen and evaluated at bedside. Reports w/neck pain c/o. Afebrile overnight. Objective - Vital Signs/Intake and Output Vital Signs (last 24 hours): Temp Pulse Resp BP Pulse Ox 97.8 F 87 20 114/70 95 01/08/17 07:48 01/08/17 09:40 01/08/17 07:48 01/08/17 09:40 01/08/17 07:48 Intake and Output: 01/08/17 01/08/17 06:59 18:59 Intake Total 240 Balance 240 - Medications Medications: Current Medications Amlodipine Besylate (Norvasc) 10 mg PO DAILY [facility] Last Admin: 01/08/17 09:39 Dose: 10 mg Aspirin (Ecotrin) 81 mg PO DAILY [facility] Last Admin: 01/08/17 09:39 Dose: 81 mg Atorvastatin Calcium (Lipitor) 20 mg PO HS [facility] Last Admin: 01/07/17 23:02 Dose: 20 mg Baclofen (Lioresal) 5 mg PO TID [facility] Last Admin: 01/08/17 09:40 Dose: 5 mg Enoxaparin Sodium (Lovenox) 40 mg SC DAILY [facility] PRN Reason: Protocol Last Admin: 01/08/17 09:39 Dose: 40 mg Insulin Human Regular (Humulin R Low) 0 units SC ACHS [facility] PRN Reason: Protocol Last Admin: 01/08/17 08:30 Dose: Not Given Ketorolac Tromethamine (Toradol) 30 mg IVP Q6 PRN PRN Reason: Pain, moderate (4-7) Last Admin: 01/08/17 08:20 Dose: 30 mg Levothyroxine Sodium (Synthroid) 112 mcg PO ACB [facility] Last Admin: 01/08/17 08:25 Dose: 112 mcg Lisinopril (Zestril) 20 mg PO DAILY [facility] Last Admin: 01/08/17 09:39 Dose: 20 mg Metoprolol Tartrate (Lopressor) 25 mg PO DAILY [facility] Last Admin: 01/08/17 09:40 Dose: 25 mg Morphine Sulfate (Morphine) 2 mg IVP Q6H PRN PRN Reason: Pain, severe (8-10) Last Admin: 01/06/17 17:23 Dose: 2 mg Ondansetron HCl (Zofran Inj) 4 mg IVP Q6 PRN PRN Reason: Nausea/Vomiting Last Admin: 01/06/17 14:17 Dose: 4 mg Oxycodone/Acetaminophen (Percocet 5/325 Mg Tab) 1 tab PO Q6H PRN PRN Reason: Pain, severe (8-10) Stop: 01/10/17 10:32 Last Admin: 01/08/17 05:16 Dose: 1 tab Pantoprazole Sodium (Protonix Ec Tab) 40 mg PO DAILY [facility] Last Admin: 01/08/17 09:40 Dose: 40 mg - Labs Labs: 01/08/17 07:15 01/08/17 07:15 PT 10.1 Seconds (9.9-11.8) 01/06/17 07:15 INR 0.94 (0.93-1.08) 01/06/17 07:15 APTT 26.4 Seconds (23.7-30.8) 01/06/17 07:15 - Additional Findings Additional findings: - Constitutional Appears: Well, No Acute Distress - Head Exam Head Exam: ATRAUMATIC, NORMOCEPHALIC - Eye Exam Eye Exam: EOMI, Normal appearance, PERRL - ENT Exam ENT Exam: Mucous Membranes Moist - Neck Exam Additional comments: Neck to the right tender to palpation - Respiratory Exam Respiratory Exam: Clear to Ausculation Bilateral, NORMAL BREATHING PATTERN - Cardiovascular Exam Cardiovascular Exam: RRR, +S1, +S2. - GI/Abdominal Exam GI & Abdominal Exam: Soft. Non-tender - Extremities Exam Extremities Exam: pulses palpable, no pedal edema Additional comments: decreased ROM right upper extremity at the shoulder due to pain. - Neurological Exam Neurological Exam: Alert, Awake - Psychiatric Exam Psychiatric exam: Normal Affect, Normal Mood - Skin Skin Exam: Intact, Normal Color Assessment and Plan - Assessment and Plan (Free Text) Plan: 61yo F with PMHx of HTN, Hypothyroidism, DM, HLD here for evaluation of right sided chest and neck pain 1. Atypical chest pain Reproducible EKG - sinus tachy @113, no acute ST changes CXR - mild atelectasis, no infiltrates D-Dimer negative troponin neg x3, ACS ruled out Pain management: toradol, morphine continue home meds: Asa 81 CT angiography - No PE, No dissection 2. Muscle spasm Cervical Spine xray - Decreased c-spine lordosis, possible muscle spasm CT c-spine 01/06/2017: "mild degenrative disc disease at C5-6 w/mild L neural foraminal stenosis. no spinal canal stenosis" Baclofen TID 3. Dizziness consider due to narcotics will use NSAIDs preferred over narcotics continue PT eval and treat 4. Lactic Acidosis resolved no current clinical signs or symptoms repeat lactic acid wnl blood cxs neg at 48hrs UA negative Urine Cxs neg final Procalcitonin negative Levofloxicin discontinued 5. Hx of DM HbA1c - 6.4 ISS Accuchecks metformin continued 6. Hx of HTN continue home meds: Amlodipine, Lisinopril hold HCTZ resume Metoprolol continue to monitor 7. Hx of HLD continue atorvastatin 20 HS 8. Hx of Hypothyroid TSH - 6.61 mildly elevated increased Levothyroxine 112mcg from 100 mcg (on 01/07/2017) will need out-patient f/u 9. PPx Lovenox Protonix Case seen and discussed with attending. <Gilmar Guerrero - Last Filed: 01/08/17 20:00> Objective - Vital Signs/Intake and Output Vital Signs (last 24 hours): Temp Pulse Resp BP Pulse Ox 97.6 F 72 69 H 120/68 96 01/08/17 17:07 01/08/17 17:07 01/08/17 17:07 01/08/17 17:07 01/08/17 17:07 Intake and Output: 01/08/17 01/09/17 18:59 06:59 Intake Total 420 Balance 420 - Medications Medications: Current Medications Amlodipine Besylate (Norvasc) 10 mg PO DAILY [facility] Last Admin: 01/08/17 09:39 Dose: 10 mg Aspirin (Ecotrin) 81 mg PO DAILY [facility] Last Admin: 01/08/17 09:39 Dose: 81 mg Atorvastatin Calcium (Lipitor) 20 mg PO HS [facility] Last Admin: 01/07/17 23:02 Dose: 20 mg Baclofen (Lioresal) 5 mg PO TID [facility] Last Admin: 01/08/17 17:38 Dose: 5 mg Enoxaparin Sodium (Lovenox) 40 mg SC DAILY [facility] PRN Reason: Protocol Last Admin: 01/08/17 09:39 Dose: 40 mg Insulin Human Regular (Humulin R Low) 0 units SC ACHS [facility] PRN Reason: Protocol Last Admin: 01/08/17 17:38 Dose: 1 units Ketorolac Tromethamine (Toradol) 30 mg IVP Q6 PRN PRN Reason: Pain, moderate (4-7) Last Admin: 01/08/17 08:20 Dose: 30 mg Levothyroxine Sodium (Synthroid) 112 mcg PO ACB [facility] Last Admin: 01/08/17 08:25 Dose: 112 mcg Lisinopril (Zestril) 20 mg PO DAILY [facility] Last Admin: 01/08/17 09:39 Dose: 20 mg Metformin HCl (Glucophage) 500 mg PO BID [facility] Last Admin: 01/08/17 17:38 Dose: 500 mg Metoprolol Tartrate (Lopressor) 25 mg PO DAILY [facility] Last Admin: 01/08/17 09:40 Dose: 25 mg Morphine Sulfate (Morphine) 2 mg IVP Q6H PRN PRN Reason: Pain, severe (8-10) Last Admin: 01/06/17 17:23 Dose: 2 mg Ondansetron HCl (Zofran Inj) 4 mg IVP Q6 PRN PRN Reason: Nausea/Vomiting Last Admin: 01/06/17 14:17 Dose: 4 mg Oxycodone/Acetaminophen (Percocet 5/325 Mg Tab) 1 tab PO Q6H PRN PRN Reason: Pain, severe (8-10) Stop: 01/10/17 10:32 Last Admin: 01/08/17 16:26 Dose: 1 tab Pantoprazole Sodium (Protonix Ec Tab) 40 mg PO DAILY [facility] Last Admin: 01/08/17 09:40 Dose: 40 mg - Labs Labs: 01/08/17 07:15 01/08/17 07:15 PT 10.1 Seconds (9.9-11.8) 01/06/17 07:15 INR 0.94 (0.93-1.08) 01/06/17 07:15 APTT 26.4 Seconds (23.7-30.8) 01/06/17 07:15 Attending/Attestation - Attestation I have personally seen and examined this patient.: Yes I have fully participated in the care of the patient.: Yes I have reviewed all pertinent clinical information, including history, physical exam and plan: Yes Notes (Text): 01/08/17 19:59 Patient seen and examined at bedside. Labs, vitals and notes reviewed. Translation used. Patient reports improved in her symptoms and is ambulating better without assistance. Mild dizziness reported but denies any other symptoms. Agree with the plan of care outlined above.
[2017-01-09] MEDS: Oxycodone/Acetaminophen 5/325 mg Tab PO PRN ×2 (01:10→10:08)
[2017-01-09] MEDS: Insulin Reg-LOW-Coverage SC SCH ×2 (08:09→12:36)
[2017-01-09 08:47] VITALS: PULSE 84; RESP 20; TEMP 97.9; O2SAT 97
[2017-01-09] MEDS: Pantoprazole 40 mg EC Tab PO SCH (09:12)
[2017-01-09] MEDS: Levothyroxine 112 MCG TAB PO SCH (09:13)
[2017-01-09] MEDS: Enoxaparin 40 mg Syringe SC SCH (09:14)
[2017-01-09 09:18] VITALS: BP 128/67
[2017-01-09] MEDS ORDERED: Lidocaine 5% Patch TD ONE (14:04)
--- NOTE | 2017-01-09 15:04 | CP.PCM.DIS ---
<Gilmar Guerrero - Last Filed: 01/09/17 16:41> Provider - Provider Date of Admission: 01/06/17 09:22 Attending physician: Gilmar Guerrero MD Primary care physician: Steph Benito MD Hospital Course - Lab Results Lab Results: Micro Results 01/06/17 16:40 Urine,Clean Catch Urine Culture - Final No Growth (<1,000 CFU/ML) Most Recent Lab Values WBC 5.4 10^3/ul (4.5-11.0) 01/08/17 07:15 RBC 4.52 10^6/uL (3.5-6.1) 01/08/17 07:15 Hgb 13.2 gm/dL (12.0-16.0) 01/08/17 07:15 Hct 38.0 % (36.0-48.0) 01/08/17 07:15 MCV 84.1 fL (80.0-105.0) 01/08/17 07:15 MCH 29.2 pg (25.0-35.0) 01/08/17 07:15 MCHC 34.7 g/dl (31.0-37.0) 01/08/17 07:15 RDW 13.6 % (11.5-14.5) 01/08/17 07:15 Plt Count 278 10^3/uL (120.0-450.0) 01/08/17 07:15 MPV 9.9 fl (7.0-11.0) 01/08/17 07:15 Gran % 49.3 % (50.0-68.0) L 01/08/17 07:15 Lymph % (Auto) 35.3 % (22.0-35.0) H 01/08/17 07:15 Bryan % (Auto) 11.6 % (1.0-6.0) H 01/08/17 07:15 Eos % (Auto) 2.9 % (1.5-5.0) 01/08/17 07:15 Baso % (Auto) 0.9 % (0.0-3.0) 01/08/17 07:15 Gran # 2.68 (1.4-6.5) 01/08/17 07:15 Lymph # 1.9 (1.2-3.4) 01/08/17 07:15 Bryan # 0.6 (0.1-0.6) 01/08/17 07:15 Eos # 0.2 (0.0-0.7) 01/08/17 07:15 Baso # 0.05 K/mm3 (0.0-2.0) 01/08/17 07:15 PT 10.1 Seconds (9.9-11.8) 01/06/17 07:15 INR 0.94 (0.93-1.08) 01/06/17 07:15 APTT 26.4 Seconds (23.7-30.8) 01/06/17 07:15 D-Dimer, Quantitative 0.26 mg/L FEU (0-0.50) 01/06/17 07:15 pO2 33 mm/Hg (30-55) 01/06/17 11:30 VBG pH 7.49 (7.32-7.43) H 01/06/17 11:30 VBG pCO2 31.0 (40-60) L 01/06/17 11:30 VBG HCO3 23.6 mmol/l (21-28) 01/06/17 11:30 VBG Total CO2 24.6 mmol.L (22-28) 01/06/17 11:30 VBG O2 Sat (Calc) 73.2 % (40-65) H 01/06/17 11:30 VBG Base Excess 1.1 mmol/L (0.0-2.0) 01/06/17 11:30 VBG Potassium 3.9 mmol/L (3.6-5.2) 01/06/17 11:30 Sodium 139.0 mmol/L (132-148) 01/06/17 11:30 Chloride 110.0 mmol/L (98-107) H 01/06/17 11:30 Glucose 103 mg/dl (65-105) 01/06/17 11:30 Lactate 1.7 mmol/L (0.7-2.1) 01/06/17 11:30 FiO2 21.0 % 01/06/17 11:30 Sodium 139 mmol/L (132-148) 01/08/17 07:15 Potassium 3.7 mmol/L (3.6-5.0) 01/08/17 07:15 Chloride 107 mmol/L (98-107) 01/08/17 07:15 Carbon Dioxide 24 mmol/L (21-33) 01/08/17 07:15 Anion Gap 12 (10-20) 01/08/17 07:15 BUN 15 mg/dL (7-21) 01/08/17 07:15 Creatinine 0.6 mg/dL (0.5-1.4) 01/08/17 07:15 Est GFR ( Amer) > 60 01/08/17 07:15 Est GFR (Non-Af Amer) > 60 01/08/17 07:15 POC Glucose (mg/dL) 156 mg/dL (65-110) H 01/06/17 07:26 Random Glucose 114 mg/dL (70-110) H 01/08/17 07:15 Hemoglobin A1c 6.4 % (4.2-6.5) 01/06/17 11:30 Calcium 9.0 mg/dL (8.4-10.5) 01/08/17 07:15 Total Bilirubin 0.5 mg/dL (0.2-1.3) 01/06/17 07:15 AST 48 U/L (15-39) H 01/06/17 07:15 ALT 42 U/L (7-56) 01/06/17 07:15 Alkaline Phosphatase 91 U/L (38-133) 01/06/17 07:15 Lactate Dehydrogenase 519 U/L (333-699) 01/06/17 07:15 Total Creatine Kinase 180 U/L (35-230) 01/06/17 07:15 Troponin I < 0.01 ng/mL 01/06/17 21:54 NT-Pro-B Natriuret Pep 35.9 pg/mL (0-450) 01/06/17 07:15 Total Protein 8.6 g/dL (5.8-8.3) H 01/06/17 07:15 Albumin 4.6 g/dL (3.0-4.8) 01/06/17 07:15 Globulin 3.9 gm/dL 01/06/17 07:15 Albumin/Globulin Ratio 1.2 (1.1-1.8) 01/06/17 07:15 Procalcitonin 0.05 NG/ML (0.19-0.49) L 01/06/17 11:30 TSH 3rd Generation 6.61 mIU/mL (0.46-4.68) H 01/06/17 11:30 Venous Blood Potassium 3.9 mmol/L (3.6-5.2) 01/06/17 11:30 Urine Color Yellow (YELLOW) 01/06/17 07:15 Urine Appearance Clear (CLEAR) 01/06/17 07:15 Urine pH 7.0 (4.7-8.0) 01/06/17 07:15 Ur Specific [place] <= 1.005 (1.005-1.035) 01/06/17 07:15 Urine Protein Negative mg/dL (<30 mg/dL) 01/06/17 07:15 Urine Glucose (UA) Negative mg/dL (NEGATIVE) 01/06/17 07:15 Urine Ketones Negative mg/dL (NEGATIVE) 01/06/17 07:15 Urine Blood Negative (NEGATIVE) 01/06/17 07:15 Urine Nitrate Negative (NEGATIVE) 01/06/17 07:15 Urine Bilirubin Negative (NEGATIVE) 01/06/17 07:15 Urine Urobilinogen 0.2 E.U./dL (<1 E.U./dL) 01/06/17 07:15 Ur Leukocyte Esterase Negative Mary/uL (NEGATIVE) 01/06/17 07:15 Discharge Plan - Discharge Medications Prescriptions: Baclofen [Lioresal] 5 mg PO TID #42 tab Levothyroxine [Synthroid] 112 mcg PO ACB #28 tab Lidocaine 5% [Lidoderm] 1 ea TD DAILY #3 patch oxyCODONE/Acetaminophen [Percocet 5/325 mg Tab] 1 tab PO Q6H PRN #9 tab PRN Reason: Pain, Severe (8-10) - Follow Up Plan Condition: STABLE Disposition: HOME/ ROUTINE Instructions: Chest Pain (GEN), Cholesterol and Your Health (GEN), Hypertension (GEN) Additional Instructions: You are discharged home. Please follow up with your primary medical physician within one week and 6 weeks after discharge. Please follow up with Dr. Núñez. Please continue your home medications, with the exception of your levothyroxine , because the dose was changed to 112 mcg daily. Also, you are given new prescriptions for percocet 5/325 one tab every 6 hours as needed with 9 tabs given, baclofen 5mg by mouth three times daily, and lidocaine patch to be placed on skin, one patch daily. You are given a prescription for home physical therapy services, three to five times a week for one week. Please return to the emergency department for worsening of symptoms. Referrals: Steph Benito MD [Primary Care Provider] - Attending/Attestation - Attestation I have personally seen and examined this patient.: Yes I have fully participated in the care of the patient.: Yes I have reviewed all pertinent clinical information, including history, physical exam and plan: Yes Notes (Text): 01/09/17 16:41 Patient seen and examined at bedside with the resident. Vitals, labs, medications and notes reviewed. Patient reports improvement in pain and is able to ambulate better now. Discharge plan clearly explained to the patient including follow up with physiatry as well as her PMD to check her thyroid panel. Reviewed and agree with the discharge plan as outlined above. <TamirLina - Last Filed: 01/09/17 17:00> Provider - Provider Date of Admission: 01/06/17 09:22 Attending physician: Gilmar Guerrero MD Primary care physician: Steph Benito MD Consults: none Time Spent in preparation of Discharge (in minutes): 35 Hospital Course - Lab Results Lab Results: Micro Results 01/06/17 16:40 Urine,Clean Catch Urine Culture - Final No Growth (<1,000 CFU/ML) Most Recent Lab Values WBC 5.4 10^3/ul (4.5-11.0) 01/08/17 07:15 RBC 4.52 10^6/uL (3.5-6.1) 01/08/17 07:15 Hgb 13.2 gm/dL (12.0-16.0) 01/08/17 07:15 Hct 38.0 % (36.0-48.0) 01/08/17 07:15 MCV 84.1 fL (80.0-105.0) 01/08/17 07:15 MCH 29.2 pg (25.0-35.0) 01/08/17 07:15 MCHC 34.7 g/dl (31.0-37.0) 01/08/17 07:15 RDW 13.6 % (11.5-14.5) 01/08/17 07:15 Plt Count 278 10^3/uL (120.0-450.0) 01/08/17 07:15 MPV 9.9 fl (7.0-11.0) 01/08/17 07:15 Gran % 49.3 % (50.0-68.0) L 01/08/17 07:15 Lymph % (Auto) 35.3 % (22.0-35.0) H 01/08/17 07:15 Bryan % (Auto) 11.6 % (1.0-6.0) H 01/08/17 07:15 Eos % (Auto) 2.9 % (1.5-5.0) 01/08/17 07:15 Baso % (Auto) 0.9 % (0.0-3.0) 01/08/17 07:15 Gran # 2.68 (1.4-6.5) 01/08/17 07:15 Lymph # 1.9 (1.2-3.4) 01/08/17 07:15 Bryan # 0.6 (0.1-0.6) 01/08/17 07:15 Eos # 0.2 (0.0-0.7) 01/08/17 07:15 Baso # 0.05 K/mm3 (0.0-2.0) 01/08/17 07:15 PT 10.1 Seconds (9.9-11.8) 01/06/17 07:15 INR 0.94 (0.93-1.08) 01/06/17 07:15 APTT 26.4 Seconds (23.7-30.8) 01/06/17 07:15 D-Dimer, Quantitative 0.26 mg/L FEU (0-0.50) 01/06/17 07:15 pO2 33 mm/Hg (30-55) 01/06/17 11:30 VBG pH 7.49 (7.32-7.43) H 01/06/17 11:30 VBG pCO2 31.0 (40-60) L 01/06/17 11:30 VBG HCO3 23.6 mmol/l (21-28) 01/06/17 11:30 VBG Total CO2 24.6 mmol.L (22-28) 01/06/17 11:30 VBG O2 Sat (Calc) 73.2 % (40-65) H 01/06/17 11:30 VBG Base Excess 1.1 mmol/L (0.0-2.0) 01/06/17 11:30 VBG Potassium 3.9 mmol/L (3.6-5.2) 01/06/17 11:30 Sodium 139.0 mmol/L (132-148) 01/06/17 11:30 Chloride 110.0 mmol/L (98-107) H 01/06/17 11:30 Glucose 103 mg/dl (65-105) 01/06/17 11:30 Lactate 1.7 mmol/L (0.7-2.1) 01/06/17 11:30 FiO2 21.0 % 01/06/17 11:30 Sodium 139 mmol/L (132-148) 01/08/17 07:15 Potassium 3.7 mmol/L (3.6-5.0) 01/08/17 07:15 Chloride 107 mmol/L (98-107) 01/08/17 07:15 Carbon Dioxide 24 mmol/L (21-33) 01/08/17 07:15 Anion Gap 12 (10-20) 01/08/17 07:15 BUN 15 mg/dL (7-21) 01/08/17 07:15 Creatinine 0.6 mg/dL (0.5-1.4) 01/08/17 07:15 Est GFR ( Amer) > 60 01/08/17 07:15 Est GFR (Non-Af Amer) > 60 01/08/17 07:15 POC Glucose (mg/dL) 156 mg/dL (65-110) H 01/06/17 07:26 Random Glucose 114 mg/dL (70-110) H 01/08/17 07:15 Hemoglobin A1c 6.4 % (4.2-6.5) 01/06/17 11:30 Calcium 9.0 mg/dL (8.4-10.5) 01/08/17 07:15 Total Bilirubin 0.5 mg/dL (0.2-1.3) 01/06/17 07:15 AST 48 U/L (15-39) H 01/06/17 07:15 ALT 42 U/L (7-56) 01/06/17 07:15 Alkaline Phosphatase 91 U/L (38-133) 01/06/17 07:15 Lactate Dehydrogenase 519 U/L (333-699) 01/06/17 07:15 Total Creatine Kinase 180 U/L (35-230) 01/06/17 07:15 Troponin I < 0.01 ng/mL 01/06/17 21:54 NT-Pro-B Natriuret Pep 35.9 pg/mL (0-450) 01/06/17 07:15 Total Protein 8.6 g/dL (5.8-8.3) H 01/06/17 07:15 Albumin 4.6 g/dL (3.0-4.8) 01/06/17 07:15 Globulin 3.9 gm/dL 01/06/17 07:15 Albumin/Globulin Ratio 1.2 (1.1-1.8) 01/06/17 07:15 Procalcitonin 0.05 NG/ML (0.19-0.49) L 01/06/17 11:30 TSH 3rd Generation 6.61 mIU/mL (0.46-4.68) H 01/06/17 11:30 Venous Blood Potassium 3.9 mmol/L (3.6-5.2) 01/06/17 11:30 Urine Color Yellow (YELLOW) 01/06/17 07:15 Urine Appearance Clear (CLEAR) 01/06/17 07:15 Urine pH 7.0 (4.7-8.0) 01/06/17 07:15 Ur Specific [place] <= 1.005 (1.005-1.035) 01/06/17 07:15 Urine Protein Negative mg/dL (<30 mg/dL) 01/06/17 07:15 Urine Glucose (UA) Negative mg/dL (NEGATIVE) 01/06/17 07:15 Urine Ketones Negative mg/dL (NEGATIVE) 01/06/17 07:15 Urine Blood Negative (NEGATIVE) 01/06/17 07:15 Urine Nitrate Negative (NEGATIVE) 01/06/17 07:15 Urine Bilirubin Negative (NEGATIVE) 01/06/17 07:15 Urine Urobilinogen 0.2 E.U./dL (<1 E.U./dL) 01/06/17 07:15 Ur Leukocyte Esterase Negative Mary/uL (NEGATIVE) 01/06/17 07:15 - Hospital Course Hospital Course: 61yo F with PMHx of HTN, Hypothyroid, HLD, DM here for evaluation of right sided chest and neck pain. Pain started 3 days ago when she was resting at home. Pain started in the right jaw, then down to the right neck and right side of the chest. Pain comes and goes, gets worse with movement, has been getting more severe in intensity. Described as sharp pressure. Neck pain worse when turning head to the right. Chest pain reproducible w/ R arm movt, deep breath and palpation. EKG - sinus tachy @113, no acute ST changes, CXR - mild atelectasis, no infiltrates, initial troponin negative. D-Dimer negative. CT angiography - No PE, No dissection. Transferred to telemetry for chest pain. On the floor: Pain control with motrin, tylenol and morphine. Troponin neg x3 , ACS ruled out. Initial lactic acid at 4.9, so treated with IVF and repeat value is 1.7. Levaquin started. UA negative, Procalcitonin negative, blood cxs neg at 48hrs, Urine Cx neg final, and levaquin discontinued. Continued home medication of ASA 81 qd. Also makes a dizziness complaint during admission course. Treated with preference for nsaids over narcotics and physical therapy. Muscle spams of neck and shoulder evaluated with C_spnie XR ( Decreased c-spine lordosis, possible muscle spasm) and CT C-Spine: "mild degenrative disc disease at C5-6 w/mild L neural foraminal stenosis. no spinal canal stenosis," and treated with baclofen. Home metformin and low ISS for DM hx, and HTN treated with home medications of amlodipine and lisiniopril. Home hypothyroid medication increased due to elevated TSH during admission. Pt d/c in stable condition with following medications and instructions: You are discharged home. Please follow up with your primary medical physician within one week and 6 weeks after discharge. Please follow up with Dr. Núñez. Please continue your home medications, with the exception of your levothyroxine , because the dose was changed to 112 mcg daily. Also, you are given new prescriptions for percocet 5/325 one tab every 6 hours as needed with 9 tabs given, baclofen 5mg by mouth three times daily, and lidocaine patch to be placed on skin, one patch daily. You are given a prescription for home physical therapy services, three to five times a week for one week. Please return to the emergency department for worsening of symptoms. Discharge Exam - Additional Findings Additional findings: - Constitutional Appears: Well, No Acute Distress - Head Exam Head Exam: ATRAUMATIC, NORMOCEPHALIC - Eye Exam Eye Exam: EOMI, Normal appearance, PERRL - ENT Exam ENT Exam: Mucous Membranes Moist - Neck Exam Additional comments: Neck to the right: tender to palpation - Respiratory Exam Respiratory Exam: Clear to Auscultation Bilateral, NORMAL BREATHING PATTERN - Cardiovascular Exam Cardiovascular Exam: no bradycardia, +S1, +S2. - GI/Abdominal Exam GI & Abdominal Exam: Soft. Non-tender - Extremities Exam Extremities Exam: pulses palpable, no pedal edema - Neurological Exam Neurological Exam: Alert, Awake - Psychiatric Exam Psychiatric exam: Normal Affect, Normal Mood - Skin Skin Exam: Intact, Normal Color
== END 2017-01-09 15:48 | disposition home or self-care (01) ==
LOC: ED 06:42 → ERH 09:22 → 2RNO 11:10 → 5RNO 01-07 18:43
PROVIDERS: ADMIT Internal Medicine; ATTEND Internal Medicine
DX: R07.89 Other chest pain (principal); E03.9 Hypothyroidism, unspecified; E11.9 Type 2 diabetes mellitus without complications; E78.5 Hyperlipidemia, unspecified; E87.2 Acidosis; I10 Essential (primary) hypertension; J98.11 Atelectasis; Z79.82 Long term (current) use of aspirin; Z79.899 Other long term (current) drug therapy; Z82.49 Family history of ischemic heart disease and other diseases of the circulatory system; M54.2 Cervicalgia; Z88.0 Allergy status to penicillin; Z87.892 Personal history of anaphylaxis
CPT/HCPCS: 36415; 71010; 71275; 72050; 72125; 74175; 80048; 80053; 81003; 82550; 82803; 82948; 83036; 83615; 83880; 84145; 84443; 84484; 85025; 85378; 85610; 85730; 87040; 87086; 93005; 96361; 96365; 96366; 96372; 96375; 96376; 97162; 97530; 99285; G0378; G8978; G8979; J1650; J1885; J2270; J2405; J7040

== ENCOUNTER 2017-08-23 17:10 | Observation (INO) | payer OTHER ==
[2017-08-23] MEDS ORDERED: Sodium Chloride 0.9% 1,000 ML IV STA (18:39)
--- NOTE | 2017-08-23 18:41 | ED PDOC ---
Arrival/HPI - General Historian: Patient - History of Present Illness Time/Duration: Other (see hpi) Quality: Aching Context: Home <Clarita Frazier P - Last Filed: 08/23/17 19:47> <Subhash Barrow - Last Filed: 08/23/17 23:12> - General Chief Complaint: Flu-like Symptoms Time Seen by Provider: 08/23/17 18:39 - History of Present Illness Narrative History of Present Illness (Text): 08/23/17 18:39 This 62 yo female with pmh pre DM, htn, presents to this ED c/o cough x 2 weeks. Patient also noted nausea, vomiting, and diarrhea x 4 days. She also noted intermittent fever x 4 days. Patient denies sob, cp, rectal bleeding, urinary symptoms, dizziness, murillo, neck pain, or abnormal gait. Patient stated feeling anxious and requesting medication. (Clarita Frazier) Past Medical History - Provider Review Nursing Documentation Reviewed: Yes - Cardiac Hx Cardiac Disorders: Yes Hx Hypertension: Yes - Pulmonary Hx Respiratory Disorders: Yes Hx Bronchitis: Yes - Neurological Hx Neurological Disorder: No - HEENT Hx HEENT Disorder: No - Renal Hx Renal Disorder: No - Endocrine/Metabolic Hx Endocrine Disorders: Yes Hx Diabetes Mellitus Type 2: Yes Hx Hypothyroidism: Yes - Hematological/Oncological Hx Blood Disorders: No - Integumentary Hx Dermatological Disorder: No - Musculoskeletal/Rheumatological Hx Musculoskeletal Disorders: No Hx Falls: No - Gastrointestinal Hx Gastrointestinal Disorders: No - Genitourinary/Gynecological Hx Genitourinary Disorders: No - Psychiatric Hx Psychophysiologic Disorder: No Hx Substance Use: No - Surgical History Hx Tubal Ligation: Yes <Clarita Frazier P - Last Filed: 08/23/17 19:47> Family/Social History - Physician Review Nursing Documentation Reviewed: Yes Family/Social History: Other (noncontributory) Smoking Status: Never Smoked Hx Alcohol Use: No Hx Substance Use: No <Clarita Frazier P - Last Filed: 08/23/17 19:47> Allergies/Home Meds <FrazierAzra caponeim P - Last Filed: 08/23/17 19:47> <Subhash Barrow - Last Filed: 08/23/17 23:12> Allergies/Adverse Reactions: Allergies Penicillins Allergy (Verified 08/23/17 18:12) ANAPHYLAXIS strawberry Allergy (Verified 08/23/17 18:12) URTICARIA morphine Adverse Reaction (Verified 08/23/17 18:12) SHORTNESS OF BREATH Home Medications: Home Meds Medication Instructions Recorded Confirmed Amlodipine Besylate/Benazepril 1 cap PO HS 01/06/17 01/06/17 [Amlodipine-Benazepril 2.5-10] Aspirin [Adult Low Dose Aspirin EC] 81 mg PO DAILY 01/06/17 01/06/17 Atorvastatin Calcium 20 mg PO HS 01/06/17 01/06/17 Lisinopril/Hydrochlorothiazide 12.5 - 20 mg PO DAILY 01/06/17 01/06/17 [Lisinopril-Hctz 20-12.5 mg Tab] Metformin HCl [Glucophage] 500 mg PO BID 01/06/17 01/06/17 Metoprolol Tartrate [Lopressor] 25 mg PO DAILY 01/06/17 01/06/17 Review of Systems - Review of Systems Constitutional: Fatigue, Fevers. absent: Weight Change, Night Sweats, Other Eyes: Normal. absent: Vision Changes ENT: Normal. absent: Sore Throat, Rhinorrhea Respiratory: Cough. absent: SOB, Sputum, Wheezing Cardiovascular: Normal. absent: Chest Pain Gastrointestinal: Abdominal Pain, Diarrhea, Nausea, Vomiting Genitourinary Female: Normal. absent: Dysuria, Frequency, Hematuria Musculoskeletal: Normal Skin: Normal. absent: Rash, Cellulitis Neurological: Normal. absent: Headache, Dizziness, Focal Weakness, Gait Changes , Speech Changes, Facial Droop, Disequilibrium Endocrine: Normal Hemo/Lymphatic: Normal Psychiatric: Anxiety. absent: Depression, Suicidal Ideation <Clarita Frazier P - Last Filed: 08/23/17 19:47> Physical Exam Temperature: Afebrile Blood Pressure: Normal Pulse: Regular Respiratory Rate: Normal Appearance: Positive for: Well-Appearing, Non-Toxic, Comfortable Pain Distress: None Mental Status: Positive for: Alert and Oriented X 3 - Systems Exam Head: Present: Atraumatic, Normocephalic Pupils: Present: PERRL Extroacular Muscles: Present: EOMI Conjunctiva: Present: Normal Mouth: Present: Moist Mucous Membranes Neck: Present: Normal Range of Motion Respiratory/Chest: Present: Clear to Auscultation, Good Air Exchange. No: Respiratory Distress, Accessory Muscle Use Cardiovascular: Present: Regular Rate and Rhythm, Normal S1, S2. No: Murmurs Abdomen: Present: Normal Bowel Sounds. No: Tenderness, Distention, Peritoneal Signs, Rebound, Guarding Back: Present: Normal Inspection. No: CVA Tenderness Upper Extremity: Present: Normal Inspection, Normal ROM. No: Cyanosis, Edema Lower Extremity: Present: Normal Inspection, Normal ROM. No: Edema Neurological: Present: GCS=15, CN II-XII Intact, Speech Normal Skin: Present: Warm, Dry, Normal Color. No: Rashes Psychiatric: Present: Alert, Oriented x 3, Normal Insight, Normal Concentration <Frazier,Nahim P - Last Filed: 08/23/17 19:47> Vital Signs Temp Pulse Resp BP Pulse Ox 08/23/17 19:15 106 H 18 122/78 98 08/23/17 18:17 98.5 F 111 H 18 112/75 95 Medical Decision Making <Clarita Frazier P - Last Filed: 08/23/17 19:47> <Subhash Barrow - Last Filed: 08/23/17 23:12> ED Course and Treatment: 08/23/17 22:56 CT of Abdomen/ Pelvis reviewed by radiologist, shows: 1. Fluid/loose stool within bowel may suggest diarrhea illness. 2. Borderline enlarged appendix. No inflammation. Clinical correlation is needed. 3. Incidental/non-acute findings are described above. 08/23/17 22:56 Patient seen and evaluated with PA. She has positive influenza, precautions taken and patient started on precautions. As patient with diffuse abdominal pain, ct ordered. On re-exam, no respiratory distress, no meningeal signs. CT reading reveals enlarged appendix. On re-exam, she has focal RLQ pain. WBC unremarkable. Will admit to hospitalist, consult on-call surgeon. 08/23/17 23:11 Case discussed with Sofiya Beaulieu (Subhash Barrow) - Lab Interpretations Lab Results: 08/23/17 19:05 08/23/17 19:05 Lab Results 08/23/17 21:25: Urine Color Yellow, Urine Appearance Clear, Urine pH 7.0, Ur Specific Ray <= 1.005, Urine Protein Negative, Urine Glucose (UA) Negative, Urine Ketones Negative, Urine Blood Negative, Urine Nitrate Negative, Urine Bilirubin Negative, Urine Urobilinogen 0.2, Ur Leukocyte Esterase Negative 08/23/17 19:05: Influenza Typ A,B (EIA) Pos for influenza a H 08/23/17 19:05: Sodium 136, Potassium 3.2 L, Chloride 97 L, Carbon Dioxide 23, Anion Gap 19, BUN 10, Creatinine 0.6 L, Est GFR ( Amer) > 60, Est GFR ( Non-Af Amer) > 60, Random Glucose 148 H, Calcium 9.5, Total Bilirubin 0.3, AST 90 H, ALT 67 H, Alkaline Phosphatase 94, Total Protein 7.8, Albumin 4.2, Globulin 3.5, Albumin/Globulin Ratio 1.2, Lipase 267 08/23/17 19:05: WBC 3.3 L D, RBC 4.86, Hgb 14.4, Hct 40.9, MCV 84.2, MCH 29.6, MCHC 35.2, RDW 13.1, Plt Count 215, MPV 9.7, Gran % 43.0 L, Lymph % (Auto) 41.2 H, [place] % (Auto) 15.2 H, Eos % (Auto) 0.0 L, Baso % (Auto) 0.6, Gran # 1.42, Lymph # 1.4, [place] # 0.5, Eos # 0.0, Baso # 0.02 - RAD Interpretation Narrative RAD Interpretations (Text): 08/23/17 19:51 Chest x-rays: NAD (FrazierClarita P) Radiology Orders: 08/23/17 18:40 ABD & PELVIS IV CONTRAST ONLY [CT] Stat CHEST PORTABLE [RAD] Stat - Medication Orders Current Medication Orders: Discontinued Medications Famotidine (Pepcid) 20 mg IVP STAT STA Stop: 08/23/17 18:40 Last Admin: 08/23/17 19:15 Dose: 20 mg IVP Administration Document 08/23/17 19:15 HI (Rec: 08/23/17 19:15 HI [id number]) Charges for Administration # of IVP Administrations 1 Sodium Chloride (Sodium Chloride 0.9%) 1,000 mls @ 1,000 mls/hr IV .Q1H STA Stop: 08/23/17 19:38 Last Admin: 08/23/17 19:15 Dose: 1,000 mls/hr eMAR Start Stop Document 08/23/17 19:15 HI (Rec: 08/23/17 19:15 HI [id number]) Intravenous Solution Start Date 08/23/17 Start Time 19:15 Sodium Chloride (Sodium Chloride 0.9%) 500 mls @ 1,000 mls/hr IV .Q30M STA Stop: 08/23/17 22:26 Last Admin: 08/23/17 22:47 Dose: 1,000 mls/hr eMAR Start Stop Document 08/23/17 22:47 CNR (Rec: 08/23/17 22:48 CNR [id number]) Intravenous Solution Start Date 08/23/17 Start Time 22:48 Lorazepam (Ativan) 1 mg IVP ONCE ONE PRN Reason: Protocol Stop: 08/23/17 19:02 Last Admin: 08/23/17 20:45 Dose: 1 mg IVP Administration Document 08/23/17 20:45 CNR (Rec: 08/23/17 20:45 CNR [id number]) Charges for Administration # of IVP Administrations 1 Ondansetron HCl (Zofran Inj) 4 mg IVP STAT STA Stop: 08/23/17 18:40 Last Admin: 08/23/17 19:15 Dose: 4 mg IVP Administration Document 08/23/17 19:15 HI (Rec: 08/23/17 19:15 HI [id number]) Charges for Administration # of IVP Administrations 1 Oseltamivir Phosphate (Tamiflu Cap) 75 mg PO STAT STA PRN Reason: Protocol Stop: 08/23/17 19:40 Last Admin: 08/23/17 20:45 Dose: 75 mg Potassium Chloride (K-Dur 20 Meq Er Tab) 40 meq PO STAT STA Stop: 08/23/17 22:46 Last Admin: 08/23/17 22:54 Dose: 40 meq Disposition/Present on Arrival - Present on Arrival History of DVT/PE: No History of Uncontrolled Diabetes: No Urinary Catheter: No History of Decub. Ulcer: No History Surgical Site Infection Following: None <Clarita Frazier - Last Filed: 08/23/17 19:47> - Present on Arrival Any Indicators Present on Arrival: No - Disposition Have Diagnosis and Disposition been Completed?: Yes Disposition Time: 23:03 Patient Plan: Observation <Subhash Barrow - Last Filed: 08/23/17 23:12> - Disposition Diagnosis: Abdominal pain, Influenza Disposition: HOSPITALIZED Patient Problems: Current Active Problems Problem Status Onset Abdominal pain Acute Influenza Acute Condition: FAIR Referrals: Steph Benito MD [Primary Care Provider] - Follow up with primary Forms: [employer] (Kiswahili)
[2017-08-23 19:21] LABS: BASO # 0.02 K/mm3 (0.0-2.0); BASO % 0.6 % (0.0-3.0); GRAN # 1.42 (1.4-6.5); HEMOGLOBIN 14.4 g/dL (12.0-16.0); LYMPH # 1.4 (1.2-3.4); LYMPH % 41.2 % (22.0-35.0); MEAN CELL VOLUME 84.2 fl (80.0-105.0); MEAN CORPUSCULAR HEMOGLOBIN 29.6 pg (25.0-35.0); MEAN CORPUSCULAR HGB CONC 35.2 g/dl (31.0-37.0); MEAN PLATELET VOLUME 9.7 fl (7.0-11.0); MONO # 0.5 (0.1-0.6); MONO % 15.2 % (1.0-6.0); RBC 4.86 10^6/uL (3.5-6.1); RED CELL DISTRIBUTION WIDTH 13.1 % (11.5-14.5); WHITE BLOOD COUNT 3.3 10^3/ul (4.5-11.0)
[2017-08-23 19:34] LABS: ALB/GLOB RATIO 1.2 (1.1-1.8); ALBUMIN 4.2 g/dL (3.0-4.8); ALT/SGPT 67 U/L (7-56); AST/SGOT 90 U/L (14-36); BLOOD UREA NITROGEN 10 mg/dL (7-21); CALCIUM 9.5 mg/dL (8.4-10.5); GFR AFRICAN-AMERICAN > 60; GFR NON-AFRICAN AMERICAN > 60; LIPASE 267 U/L (23-300)
[2017-08-23] MEDS ORDERED: Iohexol 350 MG/100 ML VIAL ONE (20:16)
[2017-08-23 21:48] LABS: URINE BILIRUBIN NEGATIVE (NEGATIVE); URINE BLOOD NEGATIVE (NEGATIVE); URINE GLUCOSE (UA) NEGATIVE (NEGATIVE); URINE LEUKOCYTE ESTERASE NEGATIVE Leu/uL (NEGATIVE); URINE NITRATE NEGATIVE (NEGATIVE); URINE PROTEIN NEGATIVE mg/dL (<30 mg/dL); URINE UROBILINOGEN 0.2 E.U./dL (<1 E.U./dL)
[2017-08-23 21:51] LABS: URINE APPEARANCE CLEAR (CLEAR); URINE COLOR YELLOW (YELLOW)
[2017-08-23] MEDS ORDERED: Sodium Chloride 0.9% 500 ML IV STA (21:57)
--- NOTE | 2017-08-23 22:36 | CT ---
EXAM: CT Abdomen and Pelvis With Intravenous Contrast CLINICAL HISTORY: 62 years old, female; Pain; Abdominal pain; Acute TECHNIQUE: Axial computed tomography images of the abdomen and pelvis with intravenous contrast. All CT scans at this facility use one or more dose reduction techniques, viz.: automated exposure control; ma/kV adjustment per patient size (including targeted exams where dose is matched to indication; i.e. head); or iterative reconstruction technique. Coronal and sagittal reformatted images were created and reviewed. CONTRAST: 100 mL of OMNI 350 administered intravenously. COMPARISON: No relevant prior studies available. FINDINGS: Limitations: Motion artifact - mild. Lower thorax: Minimal atelectasis/scarring. LEFT upper lobe calcified granuloma. ABDOMEN: Liver: Fatty infiltration. Gallbladder and bile ducts: No calcified stones. No ductal dilation. Pancreas: No ductal dilation. No mass. Spleen: No splenomegaly. Adrenals: No mass. Kidneys and ureters: Few too small to characterize lesions within kidneys. No hydronephrosis. Stomach and bowel: Fluid within small bowel. Fluid/loose stool within large bowel. Few scattered diverticula within colon. No associated inflammatory stranding. No definite mural thickening. No obstruction. Appendix: Borderline enlarged proximal appendix, 6-7 mm in diameter. Distal tapering. No associated inflammatory stranding. PELVIS: Bladder: Unremarkable. Reproductive: Small exophytic mass along uterine fundus, likely fibroid. ABDOMEN and PELVIS: Intraperitoneal space: No significant fluid collection. No free air. Bones/joints: Mild degenerative changes of spine. No acute fracture. Soft tissues: Unremarkable. Vasculature: Unremarkable. No aneurysm. Lymph nodes: No pathologically enlarged lymph nodes. IMPRESSION: 1. Fluid/loose stool within bowel may suggest diarrhea illness. 2. Borderline enlarged appendix. No inflammation. Clinical correlation is needed. 3. Incidental/non-acute findings are described above.
[2017-08-23] MEDS ORDERED: Potassium Chloride 20 mEq ER Tab PO STA (22:45)
--- NOTE | 2017-08-24 00:04 | CP.PCM.CON ---
<Danish Escobedo - Last Filed: 08/24/17 00:13> History of Present Illness - History of Present Illness History of Present Illness: 62F pmhx significant for DM, HTN, Hypothyroidism presents to [facility] ED for non-productive cough for 2 weeks, intermittent diffuse abdominal pain localized to the the left lower quadrant; consistent nausea, non-bloody vomiting, diarrhea increasing over the last 4 days. Minimal abd pain relief. States subjective fevers over 2 weeks. Denies shortness of breath, headaches, numbness/tingling in extremities, changes in urinary habits PMH: DM, HTN, HLD, hypothyroidism PSH: tubal ligation ALL: PCN- anaphylaxis, morphine, strawberry SocialHx: Denies tobacco, ETOH, recreational drug use Review of Systems - Review of Systems All systems: reviewed and no additional remarkable complaints except - Constitutional Constitutional: As Per HPI Past Patient History - Past Social History Smoking Status: Never Smoked - CARDIAC Hx Cardiac Disorders: Yes Hx Hypertension: Yes - PULMONARY Hx Respiratory Disorders: Yes Hx Bronchitis: Yes - NEUROLOGICAL Hx Neurological Disorder: No - HEENT Hx HEENT Problems: No - RENAL Hx Chronic Kidney Disease: No - ENDOCRINE/METABOLIC Hx Endocrine Disorders: Yes Hx Diabetes Mellitus Type 2: Yes Hx Hypothyroidism: Yes - HEMATOLOGICAL/ONCOLOGICAL Hx Blood Disorders: No - INTEGUMENTARY Hx Dermatological Problems: No - MUSCULOSKELETAL/RHEUMATOLOGICAL Hx Musculoskeletal Disorders: No Hx Falls: No - GASTROINTESTINAL Hx Gastrointestinal Disorders: No - GENITOURINARY/GYNECOLOGICAL Hx Genitourinary Disorders: No - PSYCHIATRIC Hx Psychophysiologic Disorder: No Hx Substance Use: No - SURGICAL HISTORY Hx Tubal Ligation: Yes Meds Allergies/Adverse Reactions: Allergies Allergy/AdvReac Type Severity Reaction Status Date / Time Penicillins Allergy ANAPHYLAXIS Verified 08/23/17 18:12 strawberry Allergy URTICARIA Verified 08/23/17 18:12 morphine AdvReac SHORTNESS Verified 08/23/17 18:12 OF BREATH Physical Exam - Constitutional Appears: Non-toxic, No Acute Distress - Head Exam Head Exam: ATRAUMATIC - Eye Exam Eye Exam: EOMI. absent: Scleral icterus - ENT Exam ENT Exam: Mucous Membranes Moist - Respiratory Exam Respiratory Exam: NORMAL BREATHING PATTERN. absent: Accessory Muscle Use, Respiratory Distress - Cardiovascular Exam Cardiovascular Exam: Tachycardia, +S1, +S2. absent: Bradycardia - GI/Abdominal Exam GI & Abdominal Exam: Soft, Tenderness. absent: Distended, Firm, Guarding, Hernia, Rigid Additional comments: Tenderness in left lower quadrant no rebound negative: McBurneys, rovsings, psoas, obturator - Neurological Exam Neurological exam: Alert, Oriented x3 - Psychiatric Exam Psychiatric exam: Normal Affect - Skin Skin Exam: Intact, Warm Results - Vital Signs Recent Vital Signs: Last Vital Signs Temp 98.5 F 08/23/17 18:17 Pulse 106 H 08/23/17 19:15 Resp 18 08/23/17 19:15 BP 122/78 08/23/17 19:15 Pulse Ox 98 08/23/17 19:15 - Labs Result Diagrams: 08/23/17 19:05 08/23/17 19:05 Assessment & Plan - Assessment and Plan (Free Text) Assessment: 62F positive influenza, LLQ abd pain gastritis vs acute appendicitis CT scan: 7mm diameter appendix, no appendical wall thickening, no fat stranding Plan: - NPO - IVF/Abx - pain control & Anti-emetic PRN - serial abd exams - DVT ppx - droplet precaution for Flu - will re-asses in AM - discussed w/ Dr. Varner surgical attending Danish Escobedo PGY1 <Willy Varner - Last Filed: 08/27/17 21:17> Results - Vital Signs Recent Vital Signs: Last Vital Signs Temp 97.4 F L 08/26/17 08:08 Pulse 89 08/26/17 10:10 Resp 20 08/26/17 08:08 BP 130/86 08/26/17 10:10 Pulse Ox 97 08/26/17 08:08 - Labs Result Diagrams: 08/26/17 08:00 08/26/17 08:00 Labs: Laboratory Results - last 24 hr 08/26/17 07:15 HIV 1&2 Ag/Ab, 4th Gen Nonreactive Attending/Attestation - Attestation I have personally seen and examined this patient.: Yes I have fully participated in the care of the patient.: Yes I have reviewed all pertinent clinical information: Yes Notes (Text): Pt was seen and examined at bedside Agree with above note and assessment Pt with active flu with abdominal pain No abdominal tenderness Labs and radiology reviewed C/w current mx No clinical evidence of appendicitis Plan d.w pt in detail Risk and benefit explained in detail.
[2017-08-24] MEDS ORDERED: HYDROmorphone 0.5 mg/0.5 ml ISec IVP PRN (00:19)
[2017-08-24] MEDS ORDERED: Lactated Ringer's 1,000 ML IV SCH (00:30)
[2017-08-24] MEDS ORDERED: Ciprofloxacin 400mg/200ml D5W 400 MG/200 ML BAG IVPB SCH ×2 (00:30→12:00)
[2017-08-24] MEDS ORDERED: Folic Acid 1 MG, Thiamine 100 MG, Multivitamin (MVI) 10 ML, Potassium Chloride 20 MEQ i... IV SCH (01:15)
--- NOTE | 2017-08-24 01:46 | CP.PCM.HP ---
<Memo Lorenzana - Last Filed: 08/24/17 03:15> History of Present Illness - History of Present Illness History of Present Illness: IM H&P for Hospitalist Service CC: Nausea, emesis, cough, diarrhea, and body aches for 15-20 days HPI: This is a 62 yo F with PMH of HTN, HLD, DM, and hypothyroidism who presents with 15-20 days of cough, nausea, vomiting, diarrhea, and body aches. Patient reports that she is having worsening diarrhea and urinary incontinence with her persistent cough. She also reports multiple episodes of diarrhea a day, made worse/more frequent with any PO food intake attempted. She also reports vomiting at least daily, with or without PO food intake. Emesis is non-bloody and non-bilious; clear when no recent food intake, or food colored if after recent intake. Tolerating PO fluids. Denies dysuria or hematuria, reports clear urine persistently, and reports watery diarrhea that is occasionally green in color. Of note, patient reports recently being on a 1- week course of antibiotics (unspecified, she cannot recall which antibiotic she was on) which she finished 6-7 days prior to this admission. Denies any acute change in stool characteristics during or after being on the antibiotic. Also denies any melena or hematochezia. Reports compliance with all home medications. Admits to measured fevers at home, but her reliability on her measured temps is questionable as she reports fevers at home ranging from 101F to 108F. She states that her reason for presenting today is that while being seen by her daughter, the daughter commented on patient being diaphoretic, and when she tried to help the patient stand up, patient experienced an episode of room spinning, followed by a near syncopal episode. Denies chest pain, shortness of breath, hematemesis, changes in vision, focal weakness. All other ROS in 12-system review negative. PMH: as above PSH: Tubal ligation Family Hx: HTN (Mother and Maternal grandmother) Social Hx: denies tobacco/alcohol/illicits PMD: Dr. Hamilton Present on Admission - Present on Admission Any Indicators Present on Admission: No History of DVT/PE: No History of Uncontrolled Diabetes: No Urinary Catheter: No Review of Systems - Review of Systems All systems: reviewed and no additional remarkable complaints except (as per HPI ) Past Patient History - Past Social History Smoking Status: Never Smoked - CARDIAC Hx Cardiac Disorders: Yes Hx Hypertension: Yes - PULMONARY Hx Respiratory Disorders: Yes Hx Bronchitis: Yes - NEUROLOGICAL Hx Neurological Disorder: No - HEENT Hx HEENT Problems: No - RENAL Hx Chronic Kidney Disease: No - ENDOCRINE/METABOLIC Hx Endocrine Disorders: Yes Hx Diabetes Mellitus Type 2: Yes Hx Hypothyroidism: Yes - HEMATOLOGICAL/ONCOLOGICAL Hx Blood Disorders: No - INTEGUMENTARY Hx Dermatological Problems: No - MUSCULOSKELETAL/RHEUMATOLOGICAL Hx Musculoskeletal Disorders: No Hx Falls: No - GASTROINTESTINAL Hx Gastrointestinal Disorders: No - GENITOURINARY/GYNECOLOGICAL Hx Genitourinary Disorders: No - PSYCHIATRIC Hx Psychophysiologic Disorder: No Hx Substance Use: No - SURGICAL HISTORY Hx Tubal Ligation: Yes Meds Allergies/Adverse Reactions: Allergies Allergy/AdvReac Type Severity Reaction Status Date / Time Penicillins Allergy ANAPHYLAXIS Verified 08/23/17 18:12 strawberry Allergy URTICARIA Verified 08/23/17 18:12 morphine AdvReac SHORTNESS Verified 08/23/17 18:12 OF BREATH Physical Exam - Constitutional Appears: Non-toxic, No Acute Distress - Head Exam Head Exam: ATRAUMATIC, NORMAL INSPECTION, NORMOCEPHALIC - Eye Exam Eye Exam: EOMI, Normal appearance. absent: Conjunctival injection, Scleral icterus Pupil Exam: absent: Irregular, Unequal - ENT Exam ENT Exam: Mucous Membranes Moist - Neck Exam Neck exam: Positive for: Full Rom, Normal Inspection. Negative for: Lymphadenopathy - Respiratory Exam Respiratory Exam: Clear to Auscultation Bilateral, NORMAL BREATHING PATTERN. absent: Accessory Muscle Use, Chest Wall Tenderness, Decreased Breath Sounds, Rales, Rhonchi, Wheezes - Cardiovascular Exam Cardiovascular Exam: REGULAR RHYTHM, RRR, +S1, +S2. absent: Bradycardia, Tachycardia, Irregular Rhythm, JVD, +S4 - GI/Abdominal Exam GI & Abdominal Exam: Hyperactive Bowel Sounds, Soft, Tenderness (predominantly along left lower quadrant, but also significant point tenderness along inferior lateral portion of right lower quadrant). absent: Diminished Bowel Sounds, Distended, Firm, Hypoactive Bowel Sounds, Normal Bowel Sounds, Rigid - Extremities Exam Extremities exam: Positive for: normal capillary refill, normal inspection, pedal pulses present. Negative for: calf tenderness, pedal edema, tenderness Additional comments: negative Psoas sign bilaterally - Back Exam Back exam: NORMAL INSPECTION. absent: CVA tenderness (L), CVA tenderness (R) - Neurological Exam Neurological exam: Alert, Oriented x3 Additional comments: awake and alert, moving all extremities spontaneously, following commands appropriately able to change position in bed without requiring assist no dizziness/nystagmus when changing position from upright to lying down or from lying down to standing up - Psychiatric Exam Psychiatric exam: Normal Affect, Normal Mood - Skin Skin Exam: Dry, Intact, Normal Color, Warm Additional comments: Normal skin turgor Results - Vital Signs Recent Vital Signs: Last Vital Signs Temp 98.5 F 08/23/17 18:17 Pulse 104 H 08/24/17 00:28 Resp 14 08/24/17 00:28 BP 147/83 08/24/17 00:28 Pulse Ox 94 L 08/24/17 00:28 - Labs Result Diagrams: 08/23/17 19:05 08/23/17 19:05 Assessment & Plan - Assessment and Plan (Free Text) Assessment: This is a 62 yo F with PMH of HTN, HLD, DM, and hypothyroidism who presents with 15-20 days of cough, nausea, vomiting, diarrhea, and body aches. She is being admitted for near-syncopal episode in setting of dehydration and malnutrition 2/2 the flu, and for concern for possible appendicitis given CT abd /pelvis findings and right lower quadrant pain. Plan: 1) Nausea/emesis/diarrhea/body aches -tested positive for influenza, may also be component of enteritis/gatritis -mild leukopenia of 3.3, afebrile, hemodynamically stable, and non-elevated lactate -patient reports ongoing for 15-20 days, well outside the window for Tamiflu -given recent completed course of antibiotics, need to rule out C Diff, toxin test ordered -Stool leukocytes and stool ova and parasites ordered -CT abd/pelvis notable for fluid/loose stool within bowel and borderline enlarged appendix without inflammation -borderline enlarged appendix with RLQ tenderness, but no signs of inflammation or free air under the diaphragm -covering for possible C diff and intra-abdominal infection with Cipro/Flagyl -Surgery consulted, appreciate their recs -D5 + 1/2 NS IVF at 125 cc/hr for volume repletion, s/p 1L bolus in ED -Supplemental folic acid, thiamine, and multivitamin for presumed nutritional deficiency -hypokalemic to 3.2, likely 2/2 emesis and diarrhea, 20 mEq per 1L bag of D5 + 1 /2 NS ordered 2) Hx HTN -holding home antihypertensives due to volume depleted state, continuing only Metoprolol 3) Hx HLD -lipid panel ordered, f/u -continue home Lipitor 4) Hx pre-diabetes -Fingersticks ACHS ordered -holding home metformin 5) Hypothyroidism -TSH and T4 ordered -continue home synthroid pending thyroid panel results Dispo: Med/Surg for influenza and possible appendicitis, continue IVF and IV Abx FEN: NPO, D5 + 1/2 NS + multivitamin + 20 mEq KCl per bag Access: Peripheral IV Consults: Surgery Ppx: Protonix for GI, Heparin SC for DVT Patient seen, examined, and reviewed with attending, Dr. Saenz Decision To Admit - Pt Status Changed To: Hospital Disposition Of: Observation - . Bed Request Type: Med/Surg <Tarun Saenz P - Last Filed: 08/24/17 07:37> Results - Vital Signs Recent Vital Signs: Last Vital Signs Temp 99.3 F 08/24/17 01:45 Pulse 114 H 08/24/17 01:45 Resp 22 08/24/17 01:45 BP 139/66 08/24/17 01:45 Pulse Ox 94 L 08/24/17 00:28 - Labs Result Diagrams: 08/23/17 19:05 08/23/17 19:05 Attending/Attestation - Attestation I have personally seen and examined this patient.: Yes I have fully participated in the care of the patient.: Yes I have reviewed all pertinent clinical information: Yes Notes (Text): Assessment/Plan * Patient with h/o dm, htn on 4 meds, presented with diarrhea, cough, body aches x2 wk and abd pain, found to be tender in RLQ in ER in addition to some tenderness in L flank, llq, with significantly increase bs, CT reporting entritis and prominent appendix without surrounding inflammation, in my review appendicitis vs early colitis vs lymphadenitis, being observed for flu symptoms , stool w/u, f/u on RLLQ tenderness, surgery f/u, empirically started on antibiotics for suspicion appendix involvement and tenderness.
[2017-08-24 02:35] VITALS: BMI 30.9
[2017-08-24] MEDS: metroNIDAZOLE IV 500 mg/100 ml 500 MG/100 ML BAG IVPB SCH ×2 (02:42→08:34)
[2017-08-24] MEDS ORDERED: Levothyroxine 112 MCG TAB PO SCH (07:30)
[2017-08-24 07:54] LABS: BASO # 0.02 K/mm3 (0.0-2.0); BASO % 0.5 % (0.0-3.0); EOS % 0.7 % (1.5-5.0); GRAN # 2.25 (1.4-6.5); GRAN % 51.1 % (50.0-68.0); HEMOGLOBIN 13.6 g/dL (12.0-16.0); LYMPH # 1.5 (1.2-3.4); LYMPH % 33.2 % (22.0-35.0); MEAN CELL VOLUME 84.2 fl (80.0-105.0); MEAN CORPUSCULAR HEMOGLOBIN 28.7 pg (25.0-35.0); MEAN CORPUSCULAR HGB CONC 34.1 g/dl (31.0-37.0); MEAN PLATELET VOLUME 9.8 fl (7.0-11.0); MONO # 0.6 (0.1-0.6); MONO % 14.5 % (1.0-6.0); RBC 4.74 10^6/uL (3.5-6.1); RED CELL DISTRIBUTION WIDTH 13.1 % (11.5-14.5); WHITE BLOOD COUNT 4.4 10^3/ul (4.5-11.0)
[2017-08-24 08:11] LABS: INR 1.01 (0.93-1.08); PARTIAL THROMBOPLASTIN TIME 31.3 Seconds (25.1-36.5); PROTHROMBIN TIME 11.6 SECONDS (9.4-12.5)
[2017-08-24 08:16] LABS: ALB/GLOB RATIO 1.1 (1.1-1.8); ALBUMIN 3.7 g/dL (3.0-4.8); ALT/SGPT 56 U/L (7-56); AST/SGOT 73 U/L (14-36); BLOOD UREA NITROGEN 6 mg/dL (7-21); CALCIUM 8.6 mg/dL (8.4-10.5); GFR AFRICAN-AMERICAN > 60; GFR NON-AFRICAN AMERICAN > 60; HDL CHOLESTEROL 19 mg/dL (29-60); LDL CHOLESTEROL 58 mg/dL (0-129); MAGNESIUM 1.5 mg/dL (1.7-2.2)
[2017-08-24 08:21] LABS: FREE T4 1.05 ng/dL (0.78-2.19)
--- NOTE | 2017-08-24 08:24 | RAD ---
HISTORY: cough COMPARISON: 01/06/2017 FINDINGS: LUNGS: No active pulmonary disease. PLEURA: No significant pleural effusion identified, no pneumothorax apparent. CARDIOVASCULAR: Normal. OSSEOUS STRUCTURES: No significant abnormalities. VISUALIZED UPPER ABDOMEN: Normal. OTHER FINDINGS: None. IMPRESSION: No active disease.
[2017-08-24 08:35] LABS: T3 1.11 ng/mL (0.97-1.69)
[2017-08-24] MEDS: Multivitamin Therapeutic Tab PO SCH (09:53)
[2017-08-24] MEDS ORDERED: Dextrose 5%/0.45% NS 1,000 ML IV SCH (10:00)
[2017-08-24] MEDS ORDERED: Potassium Chloride 20 MEQ in Dextrose 5%/0.45% NS 1,000 ML IV SCH (10:00)
[2017-08-24] MEDS ORDERED: guaiFENesin 200 mg/10 ml Syrup UD PO PRN (11:54)
--- NOTE | 2017-08-24 12:38 | CP.PCM.PN ---
<Lucretia Perezaf - Last Filed: 08/24/17 12:33> Subjective - Date & Time of Evaluation Date of Evaluation: 08/24/17 Time of Evaluation: 08:00 - Subjective Subjective: Surgery: Dr. Varner Pt seen and examined. No acute overnight events. States she's feeling well and that her abdominal pain which is mostly on the L side is better compared to yesterday. Admits to congestion and headache but no complaints otherwise. Denies N/V, F/C. Objective - Vital Signs/Intake and Output Vital Signs (last 24 hours): Temp Pulse Resp BP Pulse Ox 99.1 F 103 H 20 108/67 96 08/24/17 07:00 08/24/17 07:00 08/24/17 07:00 08/24/17 07:00 08/24/17 07:00 Intake and Output: 08/24/17 08/24/17 06:59 18:59 Intake Total 120 Balance 120 - Medications Medications: Current Medications Acetaminophen (Tylenol 650 Mg Supp) 650 mg RC Q4H PRN PRN Reason: Fever >100.4 F Aspirin (Ecotrin) 81 mg PO DAILY [facility] Last Admin: 08/24/17 09:53 Dose: 81 mg Atorvastatin Calcium (Lipitor) 20 mg PO HS JOS Folic Acid (Folic Acid) 1 mg PO DAILY [facility] Last Admin: 08/24/17 09:53 Dose: 1 mg Guaifenesin (Robitussin) 200 mg PO Q4H PRN PRN Reason: Cough and congestion Heparin Sodium (Porcine) (Heparin) 5,000 units SC Q12 JOS PRN Reason: Protocol Last Admin: 08/24/17 09:53 Dose: 5,000 units Hydromorphone HCl (Dilaudid) 0.5 mg IVP Q4H PRN PRN Reason: Pain, moderate (4-7) Metronidazole (Flagyl) 500 mg in 100 mls @ 100 mls/hr IVPB Q8 JOS PRN Reason: Protocol Last Admin: 08/24/17 08:34 Dose: Not Given Potassium Chloride 20 meq/ (Dextrose/Sodium Chloride) 1,010 mls @ 125 mls/hr IV .Q8H5M [facility] Ciprofloxacin (Cipro 400mg/200ml Dsw) 400 mg in 200 mls @ 133.3 mls/hr IVPB Q12 JOS PRN Reason: Protocol Stop: 08/24/17 13:31 Levothyroxine Sodium (Synthroid) 112 mcg PO ACB [facility] Last Admin: 08/24/17 09:53 Dose: 112 mcg Metoprolol Tartrate (Lopressor) 25 mg PO DAILY [facility] Last Admin: 08/24/17 09:53 Dose: 25 mg Multivitamins (Thera Tab) 1 tab PO 0800 [facility] Last Admin: 08/24/17 09:53 Dose: 1 tab Ondansetron HCl (Zofran Inj) 4 mg IVP Q4 PRN PRN Reason: Nausea/Vomiting Oseltamivir Phosphate (Tamiflu Cap) 75 mg PO BID JOS PRN Reason: Protocol Stop: 08/28/17 07:45 Last Admin: 08/24/17 09:53 Dose: 75 mg Pantoprazole Sodium (Protonix Inj) 40 mg IVP Q12 [facility] Last Admin: 08/24/17 09:53 Dose: 40 mg - Labs Labs: 08/24/17 07:00 08/24/17 07:00 PT 11.6 SECONDS (9.4-12.5) 08/24/17 07:00 INR 1.01 (0.93-1.08) 08/24/17 07:00 APTT 31.3 Seconds (25.1-36.5) 08/24/17 07:00 - Constitutional Appears: Well, No Acute Distress - Head Exam Head Exam: ATRAUMATIC, NORMOCEPHALIC - Eye Exam Eye Exam: Normal appearance - ENT Exam ENT Exam: Mucous Membranes Moist - Respiratory Exam Respiratory Exam: NORMAL BREATHING PATTERN - Cardiovascular Exam Cardiovascular Exam: Tachycardia - GI/Abdominal Exam GI & Abdominal Exam: Soft, Tenderness (minimal ttp in the LLQ). absent: Distended, Guarding, Rebound - Neurological Exam Neurological Exam: Alert, Awake, Oriented x3 - Skin Skin Exam: Dry, Warm Assessment and Plan - Assessment and Plan (Free Text) Assessment: 62F with Influenza A, being evaluated for abdominal pain r/o appendicitis Plan: - unlikely pts pain is related to the appendix, more likely related to a viral infection - start liquid diet and advance as tolerated - pt being treated for influenza - will cont to monitor - d/w Dr. Telly Perez, PGY-3 Surgery <Willy Varner - Last Filed: 08/27/17 21:18> Objective - Vital Signs/Intake and Output Vital Signs (last 24 hours): Temp Pulse Resp BP Pulse Ox 97.4 F L 89 20 130/86 97 08/26/17 08:08 08/26/17 10:10 08/26/17 08:08 08/26/17 10:10 08/26/17 08:08 - Labs Labs: 08/26/17 08:00 08/26/17 08:00 PT 11.4 SECONDS (9.4-12.5) 08/25/17 07:00 INR 0.99 (0.93-1.08) 08/25/17 07:00 APTT 29.4 Seconds (25.1-36.5) 08/25/17 07:00 Attending/Attestation - Attestation I have personally seen and examined this patient.: Yes I have fully participated in the care of the patient.: Yes I have reviewed all pertinent clinical information, including history, physical exam and plan: Yes Notes (Text): Pt was seen and examined at bedside Agree with above note and assessment Pt with Viral Gastroenteritis No evidence of appendicits c.w current mx f.u surgery prn Plan d.w pt in detail.
[2017-08-24] MEDS ORDERED: Benzocaine 20% Cream(7 gm) MT PRN (16:57)
[2017-08-24 17:11] LABS: HEPATITIS B SURFACE AG NEGATIVE (NEGATIVE)
[2017-08-24 17:18] LABS: HEPATITIS A IGM NEGATIVE (NEGATIVE)
[2017-08-24 17:29] LABS: HEPATITIS C ANTIBODY Negative (NEGATIVE)
[2017-08-24] MEDS ORDERED: DiphenhydrAMINE 50 mg/ml Inj IVP ONE (18:06)
[2017-08-24 18:23] LABS: HEPATITIS B CORE AB Negative (NEGATIVE)
[2017-08-24] MEDS: Potassium Chloride 20 MEQ in Dextrose 5%/0.45% NS 1,000 ML IV SCH (18:25)
[2017-08-24 21:25] VITALS: RESP 20
[2017-08-25] MEDS: Potassium Chloride 20 MEQ in Dextrose 5%/0.45% NS 1,000 ML IV SCH ×2 (03:02→17:42)
[2017-08-25 07:54] LABS: BASO # 0.01 K/mm3 (0.0-2.0); BASO % 0.4 % (0.0-3.0); EOS # 0.1 (0.0-0.7); EOS % 3.2 % (1.5-5.0); GRAN # 0.53 (1.4-6.5); GRAN % 20.9 % (50.0-68.0); HEMOGLOBIN 13.9 g/dL (12.0-16.0); LYMPH # 1.7 (1.2-3.4); LYMPH % 65.6 % (22.0-35.0); MEAN CELL VOLUME 85.9 fl (80.0-105.0); MEAN CORPUSCULAR HEMOGLOBIN 28.8 pg (25.0-35.0); MEAN CORPUSCULAR HGB CONC 33.5 g/dl (31.0-37.0); MEAN PLATELET VOLUME 9.6 fl (7.0-11.0); MONO # 0.3 (0.1-0.6); MONO % 9.9 % (1.0-6.0); RBC 4.83 10^6/uL (3.5-6.1); RED CELL DISTRIBUTION WIDTH 13.6 % (11.5-14.5)
[2017-08-25 08:09] LABS: INR 0.99 (0.93-1.08); PROTHROMBIN TIME 11.4 SECONDS (9.4-12.5)
[2017-08-25 08:10] LABS: PARTIAL THROMBOPLASTIN TIME 29.4 Seconds (25.1-36.5)
[2017-08-25] MEDS: Levothyroxine 125 MCG TAB PO SCH (08:13)
[2017-08-25] MEDS: Multivitamin Therapeutic Tab PO SCH (08:14)
[2017-08-25 08:34] LABS: WHITE BLOOD COUNT 2.5 10^3/ul (4.5-11.0)
[2017-08-25 09:11] LABS: ALB/GLOB RATIO 1.2 (1.1-1.8); ALBUMIN 3.7 g/dL (3.0-4.8); ALT/SGPT 52 U/L (7-56); AST/SGOT 68 U/L (14-36); BLOOD UREA NITROGEN 7 mg/dL (7-21); CALCIUM 8.7 mg/dL (8.4-10.5); GFR AFRICAN-AMERICAN > 60; GFR NON-AFRICAN AMERICAN > 60; MAGNESIUM 1.7 mg/dL (1.7-2.2)
--- NOTE | 2017-08-25 11:02 | CARD ---
APPROVED REPORT EXAM: Two-dimensional and M-mode echocardiogram with Doppler and color Doppler. INDICATION Syncope 2D DIMENSIONS Left Atrium (2D)3.1 (1.6-4.0cm)IVSd0.9 (0.7-1.1cm) LVDd3.2 (3.9-5.9cm)PWd1.0 (0.7-1.1cm) LVDs2.2 (2.5-4.0cm)FS (%) 31.4 % LVEF (%)60.0 (>50%) M-Mode DIMENSIONS Aortic Root2.10 (2.2-3.7cm)Aortic Cusp Exc.1.30 (1.5-2.0cm) Aortic Valve AoV Peak Lowjbivc458.0cm/s Mitral Valve MV E Hlksnnmj76.5cm/sMV A Emdxlxju79.8cm/sE/A ratio0.9 TDI E/Lateral E'0.0E/Medial E'0.0 Tricuspid Valve TR Peak [id number]/sRAP [id number] Peak Gr.16mmHg [id number] LEFT VENTRICLE The left ventricle is normal size. There is normal left ventricular wall thickness. The left ventricular function is normal. The left ventricular ejection fraction is within the normal range. There is normal LV segmental wall motion. RIGHT VENTRICLE The right ventricle is normal size. ATRIA The left atrium size is normal. The right atrium size is normal. The interatrial septum is intact with no evidence for an atrial septal defect. AORTIC VALVE The aortic valve is normal in structure. MITRAL VALVE The mitral valve is normal in structure. TRICUSPID VALVE The tricuspid valve is normal in structure. The tricuspid valve is normal in structure. There is mild tricuspid regurgitation. PULMONIC VALVE The pulmonic valve is not well visualized. GREAT VESSELS The aortic root is normal in size. PERICARDIAL EFFUSION There is no pericardial effusion. <Conclusion> The left ventricle is normal size. There is normal left ventricular wall thickness. The left ventricular function is normal. There is mild tricuspid regurgitation.
--- NOTE | 2017-08-25 15:58 | CP.PCM.PN ---
<Beba Triana - Last Filed: 08/25/17 15:48> Subjective - Date & Time of Evaluation Date of Evaluation: 08/25/17 Time of Evaluation: 15:48 - Subjective Subjective: Beba Triana, PGY1, Medicine Progress Note for Dr Suárez: Patient seen and examined at bedside. Pt developed a truncal body maculopapular rash, itchy yesterday evening, received Benadry 50 mg IV. This AM, pt still has the rash and spreading to her back, abdominal area and thighs. Pt tolerating liquid diet well and denies nausea, vomiting, fever, chills, headache, abdominal pain, diarrhea. Of note, pt's son is concerned about her patient's well being since prior to this admission, pt has been depressed, locking herself in her room and crying. As per son, pt has been institutionalized previously in 1970s for her depression. Objective - Vital Signs/Intake and Output Vital Signs (last 24 hours): Temp Pulse Resp BP Pulse Ox 97.8 F 78 20 146/86 98 08/25/17 08:19 08/25/17 10:18 08/25/17 08:19 08/25/17 10:18 08/25/17 08:19 Intake and Output: 08/25/17 08/25/17 06:59 18:59 Intake Total 840 400 Balance 840 400 - Medications Medications: Current Medications Acetaminophen (Tylenol 650 Mg Supp) 650 mg RC Q4H PRN PRN Reason: Fever >100.4 F Aspirin (Ecotrin) 81 mg PO DAILY [facility] Last Admin: 08/25/17 10:18 Dose: 81 mg Atorvastatin Calcium (Lipitor) 20 mg PO HS [facility] Last Admin: 08/24/17 21:22 Dose: 20 mg Benzocaine (Orajel Pm Maximum Strength) 0 gm MT Q4H PRN PRN Reason: Pain, moderate (4-7) Diphenhydramine HCl (Benadryl) 25 mg PO Q12H PRN PRN Reason: Itching / Pruritus Folic Acid (Folic Acid) 1 mg PO DAILY [facility] Last Admin: 08/25/17 10:18 Dose: 1 mg Guaifenesin (Robitussin) 200 mg PO Q4H PRN PRN Reason: Cough and congestion Heparin Sodium (Porcine) (Heparin) 5,000 units SC Q12 [facility] PRN Reason: Protocol Last Admin: 08/25/17 10:18 Dose: 5,000 units Hydromorphone HCl (Dilaudid) 0.5 mg IVP Q4H PRN PRN Reason: Pain, moderate (4-7) Potassium Chloride 20 meq/ (Dextrose/Sodium Chloride) 1,010 mls @ 75 mls/hr IV .[id number] [facility] Last Admin: 08/25/17 03:02 Dose: 75 mls/hr Levothyroxine Sodium (Synthroid) 125 mcg PO ACB [facility] Last Admin: 08/25/17 08:13 Dose: 125 mcg Metoprolol Tartrate (Lopressor) 25 mg PO DAILY [facility] Last Admin: 08/25/17 10:18 Dose: 25 mg Multivitamins (Thera Tab) 1 tab PO 0800 [facility] Last Admin: 08/25/17 08:14 Dose: 1 tab Ondansetron HCl (Zofran Inj) 4 mg IVP Q4 PRN PRN Reason: Nausea/Vomiting Oseltamivir Phosphate (Tamiflu Cap) 75 mg PO BID [facility] PRN Reason: Protocol Stop: 08/28/17 07:45 Last Admin: 08/25/17 10:18 Dose: 75 mg - Labs Labs: 08/25/17 07:00 08/25/17 07:00 PT 11.4 SECONDS (9.4-12.5) 08/25/17 07:00 INR 0.99 (0.93-1.08) 08/25/17 07:00 APTT 29.4 Seconds (25.1-36.5) 08/25/17 07:00 - Psychiatric Exam Psychiatric exam: Normal Affect, Normal Mood - Skin Skin Exam: Rash, Warm Additional comments: Maculopapular, erythematous, confluent truncal diffuse rash on chest, back, abdomen spreading to upper thigh area Assessment and Plan - Assessment and Plan (Free Text) Assessment: 62 yo F with PMH of HTN, HLD, DM, and hypothyroidism, admitted for influenza and RLQ pain (appendicitis ruled out). Pt developed a drug related body rash (2/2 likely IV antibiotics (Cipro, Flagyl) vs Protonix). Discontinued the above mentioned medications. ID consulted, appreciate help. As per family, pt also has been having depressive symptoms over past several weeks, psych consulted, will await recs: Influenza: -tested positive for influenza -leukopenia 2.5, afebrile, hemodynamically stable, and non-elevated lactate -Tamiflu 75 BID D2/5. -Resolved fevers, n/v/abdominal pain, diarrhea. - ID consulted. Appreciate recs. Truncal rash: likely drug related rash - Discontinued IV antibioitcs and protonix - Benadryl prn - ID consulted. appreciate recs. - Cont to monitor Depressed mood/hx of depression: - Psych consulted. appreciate recs. RLQ pain, resolved: 2/2 likely flu/stomach upset -CT abd/pelvis notable for fluid/loose stool within bowel and borderline enlarged appendix without inflammation -Surgery consulted. appreciate recs. No intervention. Hx HTN -holding home antihypertensives due to volume depleted state, continuing only Metoprolol Hx HLD -lipid panel ordered, f/u -continue home Lipitor Hx pre-diabetes -Fingersticks ACHS ordered -holding home metformin Hx of Hypothyroidism -TSH elevated 8.34, normal Ft4. Increased Synthroid to 125 mcg daily (from 112 mcg). Pt advised to follow up outpatient - with PMD - repeat thyroid panel in 6- 8 weeks. Ppx: Heparin SC for DVT Patient seen, examined, and reviewed with Dr Suárez. Beba Triana, PGY1 <Tammy Suárez - Last Filed: 08/25/17 17:28> Objective - Vital Signs/Intake and Output Vital Signs (last 24 hours): Temp Pulse Resp BP Pulse Ox 97.8 F 78 20 146/86 98 08/25/17 08:19 08/25/17 10:18 08/25/17 08:19 08/25/17 10:18 08/25/17 08:19 Intake and Output: 08/25/17 08/25/17 06:59 18:59 Intake Total 840 400 Balance 840 400 - Medications Medications: Current Medications Acetaminophen (Tylenol 650 Mg Supp) 650 mg RC Q4H PRN PRN Reason: Fever >100.4 F Aspirin (Ecotrin) 81 mg PO DAILY [facility] Last Admin: 08/25/17 10:18 Dose: 81 mg Atorvastatin Calcium (Lipitor) 20 mg PO HS [facility] Last Admin: 08/24/17 21:22 Dose: 20 mg Benzocaine (Orajel Pm Maximum Strength) 0 gm MT Q4H PRN PRN Reason: Pain, moderate (4-7) Diphenhydramine HCl (Benadryl) 25 mg PO Q12H PRN PRN Reason: Itching / Pruritus Folic Acid (Folic Acid) 1 mg PO DAILY [facility] Last Admin: 08/25/17 10:18 Dose: 1 mg Guaifenesin (Robitussin) 200 mg PO Q4H PRN PRN Reason: Cough and congestion Heparin Sodium (Porcine) (Heparin) 5,000 units SC Q12 [facility] PRN Reason: Protocol Last Admin: 08/25/17 10:18 Dose: 5,000 units Hydromorphone HCl (Dilaudid) 0.5 mg IVP Q4H PRN PRN Reason: Pain, moderate (4-7) Potassium Chloride 20 meq/ (Dextrose/Sodium Chloride) 1,010 mls @ 75 mls/hr IV .[id number] [facility] Last Admin: 08/25/17 03:02 Dose: 75 mls/hr Levothyroxine Sodium (Synthroid) 125 mcg PO ACB [facility] Last Admin: 08/25/17 08:13 Dose: 125 mcg Metoprolol Tartrate (Lopressor) 25 mg PO DAILY [facility] Last Admin: 08/25/17 10:18 Dose: 25 mg Multivitamins (Thera Tab) 1 tab PO 0800 [facility] Last Admin: 08/25/17 08:14 Dose: 1 tab Ondansetron HCl (Zofran Inj) 4 mg IVP Q4 PRN PRN Reason: Nausea/Vomiting Oseltamivir Phosphate (Tamiflu Cap) 75 mg PO BID [facility] PRN Reason: Protocol Stop: 08/28/17 07:45 Last Admin: 08/25/17 10:18 Dose: 75 mg - Labs Labs: 08/25/17 07:00 08/25/17 07:00 PT 11.4 SECONDS (9.4-12.5) 08/25/17 07:00 INR 0.99 (0.93-1.08) 08/25/17 07:00 APTT 29.4 Seconds (25.1-36.5) 08/25/17 07:00 Attending/Attestation - Attestation I have personally seen and examined this patient.: Yes I have fully participated in the care of the patient.: Yes I have reviewed all pertinent clinical information, including history, physical exam and plan: Yes Notes (Text): 08/25/17 17:23 62 year old female with past medical history of hypertension, diabetes, and hypothyroidism who presented with flu like symptoms and abdominal pain with diarrhea. She was found to have influenza and started on tamiflu with improvement of symptoms. GI symptoms were likely secondary to gastroenteritis and also improved. Diet is advanced as tolerated. CT abd/pelvis on admission showed borderline enlarged appendix without inflammation. Surgery is followed; no acute surgical intervention planned. Yesterday evening she developed rash which she reports spread today. ID evaluation was requested. Will hold antibiotics and protonix as per ID. Continue with benadryl prn. Will monitor. Leukopenia noted; will continue to monitor. Son reports patient has been feeling depressed over past several weeks. Psychiatry evaluation is requested. TSH was elevated at 8.34 and her synthroid dose was increased. Recommended to repeat TFTs in 6-8 weeks. Tammy Suárez MD Hospitalist.
[2017-08-26] MEDS: Potassium Chloride 20 MEQ in Dextrose 5%/0.45% NS 1,000 ML IV SCH (06:06)
--- NOTE | 2017-08-26 06:17 | CON ---
DATE: 08/25/2017 LOCATION: The patient is seen in 4, earlier today. CHIEF COMPLAINT: Rash, she developed in the hospital x1 day duration. HISTORY OF PRESENT ILLNESS: This is a 62-year-old female from [facility], who was admitted to the Emergency Room with chief complaint of diabetes, hypertension, complaining of cough x2 weeks, nausea, vomiting, diarrhea, generalized aches and pains. The patient complained of weakness, history of coronary artery disease, hypertension, and diabetes. PAST MEDICAL HISTORY: Significant for high cholesterol, hyperlipidemia, hypertension, diabetes, hypothyroidism. PAST SURGICAL HISTORY: Significant for tubal ligation. MEDICATIONS AT HOME: Include the patient to be on vitamins, Synthroid, atorvastatin, metformin, lisinopril, and hydrochlorothiazide. PHYSICAL EXAMINATION: VITAL SIGNS: Temperature of 99.5; blood pressure is 140/60; respiratory rate of 20, it is up to 22; and heart rate is up to 100. HEENT: Unremarkable. NECK: Supple. LUNGS: Have decreased breath sounds. HEART: Normal S1 and S2. ABDOMEN: Soft and nontender. SKIN: The patient has a rash, which appears to be a maculopapular generalized rash, which itches. LABORATORY DATA: Reveals a white count of 3.3, hemoglobin of 14, platelets of 216, and coagulation is noted. BUN is 7 and creatinine of 0.5. Urinalysis is noted. Influenza is positive. Hepatitis profile is negative. Dr. Suárez's note is reviewed. Dr. Milner's note is reviewed. Dr. Vigil's history and physical examination is reviewed. CAT scan is noted. Chest x-ray is noted. There is no active disease. ASSESSMENT AND PLAN: This is a 62-year-old female originally from [facility] has not been out of the [place] diabetes, hypertension, cough, coronary artery disease, high cholesterol, hyperlipidemia, hypothyroidism with tubal ligation with sepsis secondary to influenza and developed a rash, most likely from either omeprazole or Cipro. No indication for any antibiotics at this point, discontinue Cipro and Flagyl. We will order an HIV test just because of her age. The patient is on Tamiflu. I will discontinue the Cipro and Flagyl as discussed with residents and complete 5 days of Tamiflu. Rafael Helton MD
[2017-08-26] MEDS: Levothyroxine 125 MCG TAB PO SCH (08:04)
[2017-08-26] MEDS: Multivitamin Therapeutic Tab PO SCH (08:04)
[2017-08-26 08:08] VITALS: BP 130/86; PULSE 89; TEMP 97.4; O2SAT 97
[2017-08-26 08:18] LABS: BASO # 0.02 K/mm3 (0.0-2.0); BASO % 0.7 % (0.0-3.0); EOS # 0.1 (0.0-0.7); GRAN # 0.75 (1.4-6.5); GRAN % 24.7 % (50.0-68.0); HEMOGLOBIN 13.9 g/dL (12.0-16.0); LYMPH # 1.8 (1.2-3.4); LYMPH % 60.4 % (22.0-35.0); MEAN CELL VOLUME 86.2 fl (80.0-105.0); MEAN CORPUSCULAR HEMOGLOBIN 29.1 pg (25.0-35.0); MEAN CORPUSCULAR HGB CONC 33.8 g/dl (31.0-37.0); MEAN PLATELET VOLUME 9.8 fl (7.0-11.0); MONO # 0.3 (0.1-0.6); MONO % 10.2 % (1.0-6.0); RBC 4.77 10^6/uL (3.5-6.1); RED CELL DISTRIBUTION WIDTH 13.4 % (11.5-14.5)
[2017-08-26 08:30] LABS: ALB/GLOB RATIO 1.2 (1.1-1.8); ALBUMIN 3.8 g/dL (3.0-4.8); ALT/SGPT 68 U/L (7-56); AST/SGOT 86 U/L (14-36); BLOOD UREA NITROGEN 7 mg/dL (7-21); CALCIUM 9.1 mg/dL (8.4-10.5); GFR AFRICAN-AMERICAN > 60; GFR NON-AFRICAN AMERICAN > 60
--- NOTE | 2017-08-26 10:45 | CP.PCM.DIS ---
Provider - Provider Date of Admission: 08/25/17 15:55 Attending physician: Tammy Suárez MD Primary care physician: Steph Benito MD Consults: Surgery Dr Chavarria Psych Dr Genna Helton Time Spent in preparation of Discharge (in minutes): 35 Diagnosis - Discharge Diagnosis (1) Rash Status: Acute (2) Abdominal pain Status: Acute (3) Influenza Status: Acute Hospital Course - Lab Results Lab Results: Most Recent Lab Values WBC 3.0 10^3/ul (4.5-11.0) L 08/26/17 08:00 RBC 4.77 10^6/uL (3.5-6.1) 08/26/17 08:00 Hgb 13.9 g/dL (12.0-16.0) 08/26/17 08:00 Hct 41.1 % (36.0-48.0) 08/26/17 08:00 MCV 86.2 fl (80.0-105.0) 08/26/17 08:00 MCH 29.1 pg (25.0-35.0) 08/26/17 08:00 MCHC 33.8 g/dl (31.0-37.0) 08/26/17 08:00 RDW 13.4 % (11.5-14.5) 08/26/17 08:00 Plt Count 216 10^3/uL (120.0-450.0) 08/26/17 08:00 MPV 9.8 fl (7.0-11.0) 08/26/17 08:00 Gran % 24.7 % (50.0-68.0) L 08/26/17 08:00 Lymph % (Auto) 60.4 % (22.0-35.0) H 08/26/17 08:00 Dunn % (Auto) 10.2 % (1.0-6.0) H 08/26/17 08:00 Eos % (Auto) 4.0 % (1.5-5.0) 08/26/17 08:00 Baso % (Auto) 0.7 % (0.0-3.0) 08/26/17 08:00 Gran # 0.75 (1.4-6.5) L 08/26/17 08:00 Lymph # 1.8 (1.2-3.4) 08/26/17 08:00 Dunn # 0.3 (0.1-0.6) 08/26/17 08:00 Eos # 0.1 (0.0-0.7) 08/26/17 08:00 Baso # 0.02 K/mm3 (0.0-2.0) 08/26/17 08:00 PT 11.4 SECONDS (9.4-12.5) 08/25/17 07:00 INR 0.99 (0.93-1.08) 08/25/17 07:00 APTT 29.4 Seconds (25.1-36.5) 08/25/17 07:00 Sodium 142 mmol/L (132-148) 08/26/17 08:00 Potassium 4.4 mmol/L (3.6-5.0) 08/26/17 08:00 Chloride 108 mmol/L (98-107) H 08/26/17 08:00 Carbon Dioxide 25 mmol/L (21-33) 08/26/17 08:00 Anion Gap 13 (10-20) 08/26/17 08:00 BUN 7 mg/dL (7-21) 08/26/17 08:00 Creatinine 0.6 mg/dl (0.7-1.2) L 08/26/17 08:00 Est GFR ( Amer) > 60 08/26/17 08:00 Est GFR (Non-Af Amer) > 60 08/26/17 08:00 POC Glucose (mg/dL) 106 mg/dL (65-110) 08/26/17 07:13 Random Glucose 139 mg/dL (70-110) H 08/26/17 08:00 Calcium 9.1 mg/dL (8.4-10.5) 08/26/17 08:00 Phosphorus 2.9 mg/dL (2.5-4.5) 08/25/17 07:00 Magnesium 1.7 mg/dL (1.7-2.2) 08/25/17 07:00 Total Bilirubin 0.3 mg/dL (0.2-1.3) 08/26/17 08:00 AST 86 U/L (14-36) H D 08/26/17 08:00 ALT 68 U/L (7-56) H 08/26/17 08:00 Alkaline Phosphatase 75 U/L (38-126) 08/26/17 08:00 Total Protein 7.1 g/dL (5.8-8.3) 08/26/17 08:00 Albumin 3.8 g/dL (3.0-4.8) 08/26/17 08:00 Globulin 3.3 gm/dL 08/26/17 08:00 Albumin/Globulin Ratio 1.2 (1.1-1.8) 08/26/17 08:00 Triglycerides 178 mg/dL (35-160) H 08/24/17 07:00 Cholesterol 102 mg/dL (130-200) L 08/24/17 07:00 LDL Cholesterol Direct 58 mg/dL (0-129) 08/24/17 07:00 HDL Cholesterol 19 mg/dL (29-60) L 08/24/17 07:00 Lipase 267 U/L (23-300) 08/23/17 19:05 Free T4 1.05 ng/dL (0.78-2.19) 08/24/17 07:00 Total T3 1.11 ng/mL (0.97-1.69) 08/24/17 07:00 TSH 3rd Generation 8.34 mIU/mL (0.46-4.68) H 08/24/17 07:00 Urine Color Yellow (YELLOW) 08/23/17 21:25 Urine Appearance Clear (CLEAR) 08/23/17 21:25 Urine pH 7.0 (4.7-8.0) 08/23/17 21:25 Ur Specific [place] <= 1.005 (1.005-1.035) 08/23/17 21:25 Urine Protein Negative mg/dL (<30 mg/dL) 08/23/17 21:25 Urine Glucose (UA) Negative mg/dL (NEGATIVE) 08/23/17 21:25 Urine Ketones Negative mg/dL (NEGATIVE) 08/23/17 21:25 Urine Blood Negative (NEGATIVE) 08/23/17 21:25 Urine Nitrate Negative (NEGATIVE) 08/23/17 21:25 Urine Bilirubin Negative (NEGATIVE) 08/23/17 21:25 Urine Urobilinogen 0.2 E.U./dL (<1 E.U./dL) 08/23/17 21:25 Ur Leukocyte Esterase Negative Mary/uL (NEGATIVE) 08/23/17 21:25 Hepatitis A IgM Ab Negative (NEGATIVE) 08/24/17 07:00 Hep Bs Antigen Negative (NEGATIVE) 08/24/17 07:00 Hep B Core IgM Ab Negative (NEGATIVE) 08/24/17 07:00 Hepatitis C Antibody Negative (NEGATIVE) 08/24/17 07:00 Influenza Typ A,B (EIA) Pos for influenza a (NEGATIVE) H 08/23/17 19:05 - Hospital Course Hospital Course: 62 year old female with PMH of HTN, HLD, DM, and hypothyroidism who presents with 15-20 days of cough, nausea, vomiting, diarrhea, and body aches. She also reports multiple episodes of diarrhea a day, made worse/more frequent with any PO food intake attempted. She also reports vomiting at least daily, with or without PO food intake. Emesis is non-bloody and non-bilious; clear when no recent food intake, or food colored if after recent intake. Tolerating PO fluids. Denies dysuria or hematuria, reports clear urine persistently, and reports watery diarrhea that is occasionally green in color. Of note, patient reports recently being on a 1-week course of antibiotics ( unspecified, she cannot recall which antibiotic she was on) which she finished 6 -7 days prior to this admission. Denies any acute change in stool characteristics during or after being on the antibiotic. Also denies any melena or hematochezia. Reports compliance with all home medications. Denies chest pain, shortness of breath, hematemesis, changes in vision, focal weakness. Pt tested influenza positive and was given complete course of Tamiflu. On physical exam, pt had RLQ tenderness, vitals stable. CT abd/pelvis shows irritated colon, borderline enlarged appendix, some tenderness to RLQ, but appendix within normal limits as per surgery (Dr Varner). Pt was started on Ciprofloxacin and Flagyl for the colitis, pts symptoms resolved over the course with pt tolerating PO diet well. Pt developed a diffuse maculopapular truncal rash, ID was consulted and recommended discontinuing Protonix, and the antibiotics. Pts rash then subsequently resolved. Pt also had elevated TSH with normal FT4 and T3, pts Synthroid dose increased and told to follow up in 6-8 weeks for a repeat test. Pt's LFTs were also elevated, likely from antibiotics given in the hospital. Pt instructed to follow up with PMD. Discharge Exam - Head Exam Head Exam: ATRAUMATIC, NORMOCEPHALIC - Eye Exam Eye Exam: EOMI, PERRL Pupil Exam: NORMAL ACCOMODATION, PERRL - ENT Exam ENT Exam: Mucous Membranes Moist - Neck Exam Neck exam: Full Rom - Respiratory Exam Respiratory Exam: Clear to PA & Lateral, NORMAL BREATHING PATTERN, UNREMARKABLE. absent: Accessory Muscle Use, Chest Wall Tenderness, Wheezes, Respiratory Distress, Stridor - Cardiovascular Exam Cardiovascular Exam: RRR, +S1, +S2. absent: Systolic Murmur - GI/Abdominal Exam GI & Abdominal Exam: Normal Bowel Sounds, Soft. absent: Distended, Firm, Guarding, Organomegaly, Pulsatile Mass, Rebound, Tenderness - Extremities Exam Extremities exam: normal inspection - Back Exam Back exam: NORMAL INSPECTION - Neurological Exam Neurological exam: Alert, Oriented x3 - Psychiatric Exam Psychiatric exam: Normal Affect, Normal Mood - Skin Skin Exam: Dry, Warm Additional comments: improving macular diffuse truncal rash Discharge Plan - Discharge Medications Prescriptions: Levothyroxine [Synthroid] 125 mcg PO ACB #30 tab Oseltamivir [Tamiflu Cap] 75 mg PO BID 3 Days cap - Follow Up Plan Condition: FAIR Disposition: HOME/ ROUTINE Instructions: Heart Healthy Diet (DC), Hypothyroidism (DC), Diabetes Mellitus Type 1 in Adults (DC), Influenza (DC), Influenza (GEN), Chronic Hypertension (DC ) Additional Instructions: - Your liver function tests were elevated during the hospital course. Follow up with PMD. - Your TSH was also elevated at 8.34, with normal FT4 1.05 and T3 1.11. Your Synthroid dosage was increased to 125 mcg daily. You are given a script for the same for 30 days. Follow up with your PMD for a repeat TSH, FT4 in 6-8 weeks. - You can take benadryl for the rash. It should be noted that you have an allergy likely to Omeprazole and Ciprofloxacin. - You are given a script for Tamiflu for 3 for days to take at home. - Follow up with PMD within 1 week. - Return to the ER for any concerns. Referrals: Steph Benito MD [Primary Care Provider] -
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
== END 2017-08-26 14:09 | disposition home or self-care (01) ==
LOC: ED 17:10 → ERH 23:05 → 5RSO 08-24 01:33 → INTOOBSV 08-25 15:55 → OBSVTOIN 08-25 15:55
PROVIDERS: ADMIT Internal Medicine; ATTEND Internal Medicine
DX: A08.4 Viral intestinal infection, unspecified (principal); J10.1 Influenza due to other identified influenza virus with other respiratory manifestations; R21 Rash and other nonspecific skin eruption; I10 Essential (primary) hypertension; E78.5 Hyperlipidemia, unspecified; E11.9 Type 2 diabetes mellitus without complications; E03.9 Hypothyroidism, unspecified; E86.0 Dehydration; R55 Syncope and collapse; I25.10 Atherosclerotic heart disease of native coronary artery without angina pectoris; E78.00 Pure hypercholesterolemia, unspecified; F43.22 Adjustment disorder with anxiety; D72.819 Decreased white blood cell count, unspecified; R32 Unspecified urinary incontinence; Z79.82 Long term (current) use of aspirin; Z79.84 Long term (current) use of oral hypoglycemic drugs; Z98.51 Tubal ligation status
CPT/HCPCS: 36415; 71045; 74177; 80053; 80061; 80074; 81003; 82948; 83690; 83735; 84100; 84439; 84443; 84480; 85025; 85610; 85730; 87389; 87804; 93306; 96372; 96374; 96375; 97116; 97161; 99285; C9113; G0378; G8978; G8979; G8980; J0744; J1200; J1644; J2060; J2405; J3411; J7040; J7042; J7120; Q9967